=== PATIENT | female | born 1930 | race Caucasian/White ===

== ENCOUNTER 2016-09-18 06:05 | Inpatient (IN) | payer MEDICARE, BC ==
--- NOTE | 2016-09-03 16:55 | HP ---
HISTORY AND PHYSICAL: DATE OF ADMISSION: 09/18/16. The patient will be coming in to [facility] 09/18/16 for right total knee replacement. CHIEF COMPLAINT: Right knee pain and deformity. HISTORY OF PRESENT ILLNESS: The patient has had years of severe arthritis of the right knee and the pain has now gotten to the point where she would like something to be done about it. We have recommended a right total knee replacement. PAST MEDICAL HISTORY: No allergies, no cancers, no ulcers, or hepatitis. No history of DVT or pulmonary embolism. Her left leg has had peripheral vascular surgery. No recent chest pain, shortness of breath, or leg weakness. The patient had a recent cardiogram. PAST SURGICAL HISTORY: No past surgery for appendix or gallbladder or hysterectomy. PHYSICAL EXAMINATION GENERAL: She is well-nourished, well-developed, not acutely distressed. Her gait is antalgic on the right with varus of the right knee. She is able to walk on her toes and her heels and she can do a partial squat. VITAL SIGNS: Height 64 inches, weight 170, blood pressure 139/65, pulse is 100 , respirations 18, temp 96.3. HEENT: Head: NC/AT. LUNGS: Clear bilaterally. HEART: Regular, S1 and S2 normal. No murmurs or gallops. ABDOMEN: Soft and nontender. There is no organomegaly. EXTREMITIES: Right knee shows extension -5 to 8 degrees, flexion 90 degrees with discomfort. The right knee has medial tenderness, nontender anteriorly, laterally, posteriorly. She can do a leg raise. The dorsalis pedis pulse is plus and both pulses are very good with Doppler signal. No swelling of her right leg, ankle, and foot. Her left leg is larger than her right. NEUROLOGIC: The cranial nerves are grossly intact. DIAGNOSTIC STUDIES: The x-rays were reviewed, she has severe arthritis of the right knee. IMPRESSION: Right knee severe arthritis. PLAN: Right total knee replacement. Today, we reviewed again the risks and complications of surgery and her questions were answered. We will proceed with a right total knee replacement, 09/18/16. [id number]/[facility] #: [id number] MTDD
[~2016-09-18 06:05] MED LIST: Buffered Lidocaine 1% SYRIN* 3 ML/SYR SYRINGE INTRADERM ONE; Famotidine IV* 10 MG/ML 2 ML (20 mg) IV ONE; Metoclopramide TAB* 10 MG PO ONE
[2016-09-18] MEDS ORDERED: Famotidine IV* 10 MG/ML 2 ML (20 mg) ONE (06:12)
[2016-09-18] MEDS ORDERED: ceFAZolin 2 GM PREMIX(*) 2 GM/50 ML BAG IVPB ONE (06:12)
[2016-09-18] MEDS ORDERED: Metoclopramide TAB* 10 MG ONE (06:12)
[2016-09-18] MEDS ORDERED: Morphine PF AMP (0.5MG/ML)* 5 MG/10 ML AMP ONE (07:07)
[2016-09-18] MEDS ORDERED: Dexamethasone IV* 4 MG/ML 1 ML (4 MG) ONE (07:07)
[2016-09-18] MEDS ORDERED: Bupivacaine 0.5% SDV PF* 30 ML VIAL ONE (07:07)
[2016-09-18] MEDS ORDERED: Propofol* 10 MG/ML 20 ML BTL IV PUSH ONE ×2 (07:07→08:17)
[2016-09-18] MEDS ORDERED: Lidocaine 2% PF * 5 ML VIAL ONE (07:07)
[2016-09-18] MEDS ORDERED: Midazolam* 1 MG/ML 5 ML VIAL (5 MG) ONE (07:07)
[2016-09-18] MEDS ORDERED: Ketorolac INJ* 30 MG/ML 1 ML VIAL ONE (07:07)
[2016-09-18] MEDS ORDERED: KETAMINE HCL* 50 MG/ML 10 ML VIAL ONE (07:07)
[2016-09-18] MEDS ORDERED: Ondansetron INJ* 2 MG/ML VIAL ONE (07:07)
[2016-09-18] MEDS ORDERED: fentaNYL* 50 MCG/ML 2 ML VIAL (100 MCG VIAL) ONE (07:07)
[2016-09-18] MEDS ORDERED: Bupivacaine 0.5% W/EPI SDV* 30 ML VIAL ONE (07:11)
[2016-09-18] MEDS ORDERED: Phenylephrine IV* 40 MCG/ML 10 ML SYRINGE ONE (07:50)
[2016-09-18] MEDS ORDERED: Phenylephrine INJ* 10 MG/ML 1 ML VIAL (10 MG) ONE (08:03)
[2016-09-18] MEDS ORDERED: Ondansetron INJ* 2 MG/ML VIAL IV PRN ×2 (08:43→08:54)
[2016-09-18] MEDS ORDERED: fentaNYL* 50 MCG/ML 2 ML VIAL (100 MCG VIAL) IV PRN (08:43)
[2016-09-18] MEDS ORDERED: Phenylephrine INJ* 50 MG in NS 0.9% 250 ML* 245 ML IV PRN (08:43)
[2016-09-18] MEDS ORDERED: Lactated Ringers 500 ml BAG* 500 ML IV PRN (08:49)
[2016-09-18] MEDS ORDERED: EPHEDrine (Pressors)* 50 MG/ML VIAL IV PUSH PRN (08:49)
[2016-09-18] MEDS ORDERED: oxyCODONE/Acetamin 5/325 MG* TAB PO PRN ×2 (08:49)
[2016-09-18] MEDS ORDERED: Naloxone* 0.4 MG/ML 1 ML VIAL IV PRN (08:54)
[2016-09-18] MEDS ORDERED: diPHENhydraMINE IV* 50 MG/ML 1 ml VIAL (BENADRYL) IV PRN (08:54)
[2016-09-18] MEDS ORDERED: Metoclopramide IV* 5 MG/ML 2 ML VIAL IV PRN (08:54)
[2016-09-18] MEDS ORDERED: Ropivacaine* 300 MG in NS 0.9% 250 ML* 240 ML EPIDURAL SCH (09:00)
[2016-09-18] MEDS ORDERED: Acetaminophen TAB* 325 MG PO PRN (10:30)
--- NOTE | 2016-09-18 11:25 | RAD ---
Indication: Right knee replacement. 2 views of the right knee are reviewed. Drainage catheter are noted in the joint space. Bipolar knee arthroplasty appears to be in place. IMPRESSION: Bipolar knee arthroplasty in satisfactory position.
[2016-09-18 14:03] LABS: Hematocrit 27 % (35-47); Hemoglobin 8.3 g/dl (12.0-16.0)
[2016-09-18] MEDS: ceFAZolin 1 GM in Dextrose (*) 1 GM/50 ML BAG IVPB SCH (17:03)
--- NOTE | 2016-09-18 17:30 | CONS ---
CONSULTATION REPORT: DATE OF CONSULT: 09/18/16 REQUESTING PHYSICIAN FOR CONSULT: Dr. Garcia. PRIMARY CARE PROVIDER: Dr. Zepeda. ATTENDING PHYSICIAN WHILE IN THE HOSPITAL: Dr. Jimmy Sutherland (reported being dictated by Xander Saez NP). REASON FOR MEDICAL CONSULTATION: Evaluation of medical management and comorbid medical conditions. HISTORY OF PRESENTING ILLNESS: I refer you to Dr. Garcia's H and P for further details. In short, Ms. Nicole is an 86-year-old female patient who has had right knee pain for some time affecting her activities of daily living, failing conservative management. She sought care with Dr. Garcia and the patient elected to proceed with a right total knee replacement. It was recommended by the Orthopedic Services and she wanted to proceed. She does carry a history of hypertension, peripheral vascular disease, ulcerative colitis, hyperlipidemia, arthritis, anemia, and osteoporosis and because of this, we were asked to evaluate in consult. She underwent a procedure today. She was evaluated in the PACU. The patient states that she is feeling well and she does not really have any feeling to her lower extremities as of yet. She did receive epidural and spinal anesthesia. She denies having any chest pain or shortness of breath. She states that she did not feel lightheaded and she also states that she does not feel nauseous and said she is not having any pain really. She states that she feels quite well. She denies feeling drowsy and states that again this is not really offering any complaints. Because of her previous medical problems, we were asked to evaluate in consult. PAST MEDICAL HISTORY: Significant for: 1. Arthritis. 2. Peripheral vascular disease. 3. Hypertension. 4. Hyperlipidemia. 5. Ulcerative colitis. 6. Anemia. 7. Osteoporosis. PAST SURGICAL HISTORY: 1. She has had a femoral popliteal bypass in the left lower extremity. 2. She has had knee arthroscopies. 3. She has had abdominal surgery for presumed kidney stones in the past but according to the patient, it was an issue with the blood vessel wrapped around one of her ureters. She explained it to me, this was done back in the 80s. 4. Now, a right total knee replacement. HOME MEDICATIONS: According to the list that was obtained preoperatively includes: 1. Aspirin 81 mg daily. 2. Lisinopril 10 mg p.o. b.i.d. 3. Atorvastatin 20 mg daily. 4. Mesalamine 1.2 g p.o. daily. ALLERGIES TO MEDICATIONS: Include no known drug allergies. FAMILY HISTORY: Unknown. She does state that her mother had rheumatic heart disease but other than that she does not recall any medical problems in her family members. SOCIAL HISTORY: She does not smoke. She does not drink. She has 3 children. Surrogate decision maker is her . REVIEW OF SYSTEMS: There are no documented fevers. She denied having any significant weight change. No loss or double vision. She denies having any ear discharge. There is no rhinorrhea. There is no sore throat, no thyroid enlargement. She denies having any chest pain. There is no orthopnea, no nocturnal dyspnea. There is abdominal pain. No nausea, no vomiting. No dysuria, no frequency, no seizure. There is no loss of consciousness, pruritus and no skin ulcerations. Review of 14 systems completed, all others negative. PHYSICAL EXAM: Reveals vital signs, blood pressure 101/63, pulse 81, respirations 14, O2 sat 98%, temperature is 97.9. Generally, at this time, Mrs. Nicole is an 86- year-old female patient. She does not appear to be in any acute distress. She is sitting in the PACU bed. She is awake and she is alert. HEENT: Head: Atraumatic, normocephalic. Eyes: EOMs are intact. Sclerae was anicteric and not pale. Neck: Supple. Throat: Oral mucosa appears to be moist. No pharyngeal erythema. Heart: Sounds S1, S2. Regular rate and rhythm. No murmurs, rubs or gallops. Lungs: Clear to auscultation. No wheezes, rales or rhonchi. Abdomen: Soft, flat. Bowel sounds are present. Extremities: Pulses 2+ throughout. Distal CSM checks are intact to the lower extremities. She does not have any plantar or dorsiflexion at this point to the lower extremities but she has 5/5 strength in the upper extremities. Neurologically, she is awake, alert, oriented x3. Speech is clear. Tongue is midline. No gross focal deficits. Skin is intact with exception of the right knee. She has an incision which is covered with an Александр dressing. There is a Hemovac drain intact as well which is draining serosanguineous fluid. DIAGNOSTIC STUDIES/LAB DATA: Preop labs revealed WBC of 7.6, RBC of 4.19, hemoglobin of 10.6, hematocrit of 34, platelet count of 372. The INR was 0.90. Sodium 138, potassium 4.4, chloride 104, bicarb 28, BUN 16, creatinine of 0.92, glucose of 102. She did have a preop EKG which showed a normal sinus rhythm at the rate of 69, no ST elevations or T-wave inversions. Old medical records were reviewed. ASSESSMENT AND PLAN: Mrs. Nicole is an 86-year-old female patient coming into the Orthopedic Service today for an elective right total knee replacement. The hospitalist service was asked to evaluate in consult due to her medical complexity. Recommendation at this point are: 1. Status post right total knee replacement. I will defer the management to Dr. Garcia and his team. 2. Hypertension. She does have an epidural and her blood pressure systolically rate around 100 to 110 range. I am going to go ahead and hold the lisinopril for the time being. We will restart most likely when an epidural is out. 3. Hyperlipidemia. Continue statin therapy. 4. Peripheral vascular disease. I would continue her aspirin which is already been ordered by Dr. Garcia. In addition to this, I will also continue her statin and follow with her primary. 5. Ulcerative colitis. Continue her mesalamine as prescribed. 6. Anemia. We will repeat her H and H later today and transfuse as needed but her H and H was stable preop. We will follow. 7. Osteoporosis. To follow with primary. 8. Osteoarthritis. Again follow with her primary and I will defer to the Orthopedics. 9. DVT prophylaxis. Per the primary team. 10. Fluids, electrolytes, and nutrition. Recommend a regular diet. 11. Code status. Full code. TIME SPENT: Time spent on this consult was 60 minutes with greater than half that time spent [id number] with the patient obtaining my history and physical. The other half the time was spent going over the plan of care with the patient and implementing the plan of care. I did discuss the plan of care with my attending, Dr. Sutherland; he is in agreement. XANDER SAEZ NP CC: Dr. Zepeda; Dr. Garcia* [id number]/[facility] #: [id number] [facility]ALTH SYSTEMJessica
[2016-09-18] MEDS ORDERED: Lactated Ringers 500 ml BAG* 500 ML IV ONE (21:00)
[2016-09-18] MEDS ORDERED: LISINOPRIL 10 MG PO SCH (21:00)
[2016-09-18] MEDS: Docusate CAP* 100 MG PO SCH (21:21)
[2016-09-18] MEDS ORDERED: LR IV ONE (23:45)
[2016-09-19] MEDS ORDERED: diPHENhydraMINE IV* 50 MG/ML 1 ml VIAL (BENADRYL) IV PRN
[2016-09-19] MEDS ORDERED: Morphine INJ* 2 MG/ML 1 ML SYRINGE IV PRN ×2
[2016-09-19] MEDS ORDERED: oxyCODONE TAB* 5 MG TAB PO PRN
[2016-09-19] MEDS: ceFAZolin 1 GM in Dextrose (*) 1 GM/50 ML BAG IVPB SCH ×2 (00:09→09:18)
--- NOTE | 2016-09-19 00:18 | OP ---
OPERATIVE REPORT: DATE OF OPERATION: 09/18/16 - inpatient, SSU 347-02 DATE OF : 34 SURGICAL CARE: Right knee. SURGEON: Virgilio Garcia MD ASSISTANTS: MARKUS Crisostomo and radames Miles. ANESTHESIOLOGIST: Dr. Ghassan Wagner. ANESTHESIA: Spinal with Duramorph and epidural IV sedation. PRE-OP DIAGNOSIS: Severe arthritis of the right knee with varus malalignment and flexion contracture. POST-OP DIAGNOSIS: Severe arthritis of the right knee with varus malalignment and flexion contracture. OPERATIVE PROCEDURE: Right total knee replacement. COMPONENTS UTILIZED: Deniz Persona knee posterior stabilized. The femur is a size 6. The tibia is a size D. The articular surface is a 10 and the patella is a 35. COMPLICATIONS: There were no complications. DRAINS: Two blood collections drain, right knee, at the end of the case. BLOOD LOSS: 200 mL. REPLACEMENT: Crystalloid fluids. OPERATIVE INDICATIONS: Severe arthritis that has been no longer responsive to nonoperative care and the knee deformities. DESCRIPTION OF PROCEDURE: The patient was brought to the operating room and placed on the operating room table in a supine position. She was in the seated position for administration of the spinal epidural anesthetic and then returned to the supine position. A Spangler catheter was inserted. The right dorsalis pedis pulse was noted to be present and the right posterior tibial pulse was noted to be present by Doppler. The right proximal thigh was wrapped with a tourniquet and the right leg was given a preliminary chlorhexidine prep and then a formal prep from the tourniquet to the tips of the toes. After prepping , draping, and carefully sealing off, we did our universal protocol time-out confirming Param Nicole and a plan for right total knee replacement. We all agreed and we proceeded. The leg, ankle, and foot portion of her leg was dressed with an impermeable drape. Her knee flexion at the start of the case was just 90 degrees. The surgical care was done without tourniquet until the clean up and cementing phase of the case. The skin incision went from the medial aspect of the tibial tubercle to 2 fingerbreadths proximal to the superior pole of the patella. Skin and subcu divided down to the deep fascia. The prepatellar bursa was traversed and the knee was entered medial parapatellar with a finding of abundant clear goldish synovial fluid. She had complete eburnation of bone on the medial femoral condyle and the medial tibial plateau with scooping out of the medial tibial plateau large osteophytes, patellofemoral, medial, intercondylar and lateral. The tibia had large osteophytes anteriorly and posteriorly and there is osteophyte on the anterolateral femoral condyle and lateral tibial plateau. The remains of the anterior horn of the medial meniscus were excised. The lateral meniscus was carefully excised getting careful hemostasis in the region of the lateral geniculate. The ACL and PCL were carefully removed and after uplifting off their femoral origins, the tibia was made so that could be subluxated for from under the femur and then the PCL was excised. Great care was taken while working posteriorly in this area with careful hemostasis. The distal anterior femur was exposed subperiosteally for referencing and measuring. Our first cut was tibial plateau. The tibial cut was made so that we would end up with a tibial surface that would be perpendicular to the long axis of the tibia and have a slight posterior slope removing no bone from the lowest part on the medial tibia and 10 to 14 mm of bone on the lateral plateau. The femoral intramedullary drill was then utilized and the femoral canal was suctioned to discourage embolization. Femoral cutting guide distal was inserted with 6 degrees of valgus on 2 to take account for her flexion contracture. The distal femoral cut was completed. The extension gap was checked and it was satisfactory for a 10. The femur was then finished anteriorly, posteriorly and chamfering for a size 6 with external rotation considered and we then finished removal of the lateral meniscus, the PCL, posterior osteophytes on the medial femoral condyle, posterior horn medial meniscus and careful preservation of the MCL and at this stage, we had nice ligamentous balance and flexion with a 10 mm block in extension, flexion of 90 degrees and in full extension. The femur was then completed with the intercondylar cut out and trial applied with nice tight fit. The tibia was completed for a size D. The femoral canal was then cleaned x6 with saline, suctioned empty and bone plug inserted. The femur was articulated and extended with a D tibia 10 articular surface and 6 femur with full knee extension, flexion well past 110 degrees and stable ligaments. The patella was completed for a 35. Drill holes were made and undercut. A lateral release was not necessary. The final components were then opened. The leg was exsanguinated with a tourniquet. The tourniquet on the thigh elevated to 275 and there was little leakage, so we went to 300. We then proceeded with clean up of the knee in full extension with 2 L of pulsed saline irrigation. We then flexed the knee and cleaned all surfaces with pulsed saline in flexion and then all surfaces were dried. The cement was mixed and the components were cemented into position , patella followed by tibia, followed by femur. Each component was impacted. Excess cement was removed and the knee was articulated and extended during the final hardening. The tourniquet was then deflated. Hemostasis checked and achieved as we closed utilizing electrocautery. We checked posteriorly for retained cement fragments and bleeding points and coagulation completed. Two drains were brought out superolateral, suprapatellar pouch. The quad mechanism closed with interrupted #1 Polysorb's reattaching the rectus femoris to the vastus medialis tendon with figure- of-eight #1 Polysorb sutures and this was on the medial retinaculum as well and then distally, we used 0 Polysorb sutures. Deep bursa closed with 0 and then deep subcu closed with 0 Polysorb and then 3-0 Polysorb on the superficial subcu and then miesha on the skin. We irrigated several times during closure with saline and the knee was extended completed and flexed well past 115 degrees several times during the closure. The skin was closed with miesha. We infiltrated the pericapsular soft tissues with Marcaine 0.5% with epinephrine after the tourniquet came down going posteromedially, medially, and laterally. The dressing was Betadine-soaked release, sterile Webril, cryotherapy cuff, ABD pads, and then a 6-inch Александр bandage loosely applied. At the end of the case, the dorsalis pedis pulse was 2+ palpable and the posterior tibial pulse was present by Doppler as it had been preoperatively. The Doppler was done in the recovery room and the patient was returned there in stable and satisfactory condition, having tolerated the procedure very well. CC: Dr. Philippe Zepeda* [id number]/[facility] #: [id number] SON
[2016-09-19] MEDS ORDERED: LR IV ONE (04:27)
[2016-09-19] MEDS: oxyCODONE/Acetamin 5/325 MG* TAB PO PRN ×3 (05:28→21:30)
[2016-09-19 05:43] LABS: BUN/Creatinine Ratio 21.1 (8-20); Calcium 8.2 mg/dL (8.6-10.3); EGFR African American 93.2 (>60); EGFR Non-African American 72.5 (>60); Potassium 4.7 mmol/L (3.5-5.0)
[2016-09-19] MEDS ORDERED: Ondansetron TAB* 4 MG PO PRN (06:00)
[2016-09-19 07:42] LABS: Hematocrit 26 % (35-47)
[2016-09-19] MEDS: PTO: Mesalamine (NF) 1.2 GM TAB PO SCH (09:19)
[2016-09-19] MEDS: Atorvastatin* 20 MG TAB PO SCH (09:19)
[2016-09-19] MEDS: Docusate CAP* 100 MG PO SCH ×2 (09:19→21:30)
[2016-09-19] MEDS: Aspirin TAB* 325 MG PO SCH (09:19)
--- NOTE | 2016-09-19 12:19 | PN ---
Subjective Date of Service: 09/19/16 Interval History: Patient seen and examined at bedside. She denies pain to her right knee and states that she was able to work with PT and sit in the chair this morning for 2 hours. She denies fever/chills, CP, SOB, abd pain. She does report one episode of emesis following breakfast this morning but is now feeling better. No acute nursing concerns. Family History: Unchanged from Admission Social History: Unchanged from Admission Past Medical History: Unchanged from Admission Objective Active Medications: Acetaminophen (Tylenol Tab*) 650 mg PO Q4H PRN PRN Reason: PAIN OR TEMPERATURE Aspirin (Aspirin Tab*) 325 mg PO DAILY [facility] Last Admin: 09/19/16 09:19 Dose: 325 mg Atorvastatin Calcium (Lipitor*) 20 mg PO DAILY [facility] Last Admin: 09/19/16 09:19 Dose: 20 mg Diphenhydramine HCl (Benadryl Iv*) 12.5 mg IV Q6H PRN PRN Reason: PRURITIS Docusate Sodium (Colace Cap*) 100 mg PO BID [facility] Last Admin: 09/19/16 09:19 Dose: 100 mg Lactated Ringer's (Lactated Ringers 1000 Ml Bag*) 1,000 mls @ 100 mls/hr IV PER [facility]ATE [facility] Last Admin: 09/18/16 23:03 Dose: 100 mls/hr Lactulose (Lactulose*) 30 ml PO Q6H PRN PRN Reason: constipation Magnesium Hydroxide (Milk Of Magnesia Liq*) 30 ml PO Q6H PRN PRN Reason: constipation Mesalamine (Lialda (Nf)) 1.2 gm PO DAILY [facility] Last Admin: 09/19/16 09:19 Dose: 1.2 gm Morphine Sulfate (Morphine Inj (Syringe)*) 2 mg IV Q2H PRN PRN Reason: PAIN Morphine Sulfate (Morphine Inj (Syringe)*) 1 mg IV Q2H PRN PRN Reason: PAIN Ondansetron HCl (Zofran Tab*) 4 mg PO Q6H PRN PRN Reason: NAUSEA Oxycodone HCl (Roxycodone Tab*) 10 mg PO Q4H PRN PRN Reason: SEVERE PAIN Oxycodone/Acetaminophen (Percocet 5/325 Tab*) 1 tab PO Q3H PRN PRN Reason: PAIN - MODERATE Oxycodone/Acetaminophen (Percocet 5/325 Tab*) 2 tab PO Q3H PRN PRN Reason: PAIN - MODERATE Last Admin: 09/19/16 05:28 Dose: 2 tab Vital Signs 09/18/16 09/18/16 09/18/16 12:30 12:45 13:00 Temperature 97.7 F Pulse Rate 82 70 82 Respiratory 12 12 12 Rate Blood Pressure 104/45 101/44 105/44 (mmHg) O2 Sat by Pulse 98 97 97 Oximetry 09/18/16 09/18/16 09/18/16 13:15 13:36 14:26 Temperature 96.5 F 96.7 F Pulse Rate 73 72 55 Respiratory 12 20 16 Rate Blood Pressure 102/46 97/46 107/45 (mmHg) O2 Sat by Pulse 98 96 99 Oximetry 09/18/16 09/18/16 09/18/16 14:46 15:29 15:30 Temperature 96.5 F 97.3 F Pulse Rate 72 70 Respiratory 18 16 Rate Blood Pressure 97/46 85/48 104/41 (mmHg) O2 Sat by Pulse 96 Oximetry 09/18/16 09/18/16 09/18/16 16:00 16:28 17:29 Temperature 96.9 F Pulse Rate 56 Respiratory Rate Blood Pressure 102/46 (mmHg) O2 Sat by Pulse 99 99 99 Oximetry 09/18/16 09/18/16 09/18/16 18:02 18:03 18:20 Temperature 96.9 F 96.7 F Pulse Rate 59 75 Respiratory 16 Rate Blood Pressure 100/63 93/49 (mmHg) O2 Sat by Pulse 100 100 Oximetry 09/18/16 09/18/16 09/18/16 19:33 19:35 19:45 Temperature 96.9 F Pulse Rate 54 61 Respiratory 15 16 15 Rate Blood Pressure 87/42 82/41 (mmHg) O2 Sat by Pulse 100 100 Oximetry 09/18/16 09/19/16 09/19/16 23:40 00:15 01:10 Temperature 96.8 F Pulse Rate 52 58 Respiratory 16 Rate Blood Pressure 84/48 93/40 (mmHg) O2 Sat by Pulse 98 97 Oximetry 09/19/16 09/19/16 09/19/16 03:41 05:28 07:15 Temperature 97.6 F 97.3 F Pulse Rate 50 52 Respiratory 16 15 16 Rate Blood Pressure 91/43 94/40 (mmHg) O2 Sat by Pulse 96 95 Oximetry 09/19/16 09/19/16 09/19/16 07:24 08:00 09:49 Temperature 97.3 F Pulse Rate 62 Respiratory 16 16 16 Rate Blood Pressure 111/49 (mmHg) O2 Sat by Pulse 95 96 Oximetry 09/19/16 09/19/16 10:24 11:30 Temperature 97.5 F Pulse Rate 65 Respiratory 16 Rate Blood Pressure 101/45 (mmHg) O2 Sat by Pulse 98 95 Oximetry Appearance: Well appearing, older female, lying in bed, in NAD Eyes: PERRLA Ears/Nose/Mouth/Throat: Mucous Membranes Moist Neck: NL Appearance and Movements; NL JVP Respiratory: Symmetrical Chest Expansion and Respiratory Effort, Clear to Auscultation Cardiovascular: NL Sounds; No Murmurs; No JVD, RRR Abdominal: NL Sounds; No Tenderness; No Distention Extremities: No Edema, - - RLE dressing c/d/i, distal pulses 2+, cap refill <3 seconds, positive sensation/movement Skin: No Rash or Ulcers Neurological: Alert and Oriented x 3 Lines/Tubes/Other Access: Clean, Dry and Intact Peripheral IV Nutrition: Taking PO's Result Diagrams: 09/19/16 05:08 09/19/16 05:06 Assess/Plan/Problems-Billing Assessment: Ms. Nicole is an 86 yo female with a PMH of HTN, HLD, OA, PVD, osteoporosis, anemia, and ulcerative colitis who was admitted 09/18/16 for an elective right total knee replacement. - Patient Problems (1) Status post total right knee replacement Code(s): Z96.651 - PRESENCE OF RIGHT ARTIFICIAL KNEE JOINT Comment: POD #1, management per ortho Patient ordered 2 units PRBC, recheck HH in AM Continue PT/OT, pain management Supportive care (2) Anemia Code(s): D64.9 - ANEMIA, UNSPECIFIED Comment: Drop in HH likely secondary to acute blood loss following surgery Hemoglobin 10.6 earlier this month, now 8.0 Patient receiving 2 units PRBC Continue to follow closely; pt does have history of ulcerative colitis. (3) Ulcerative colitis Code(s): K51.90 - ULCERATIVE COLITIS, UNSPECIFIED, WITHOUT COMPLICATIONS Comment: Continue mesalamine. Continue to trend HH. (4) HTN (hypertension) Code(s): I10 - ESSENTIAL (PRIMARY) HYPERTENSION Comment: Mildly hypotensive to normotensive Continue to hold lisinopril (5) HLD (hyperlipidemia) Code(s): E78.5 - HYPERLIPIDEMIA, UNSPECIFIED Comment: Continue atorvastatin. (6) Peripheral vascular disease Code(s): I73.9 - PERIPHERAL VASCULAR DISEASE, UNSPECIFIED Comment: Continue home ASA and statin. (7) DVT prophylaxis Code(s): RME4020 - Comment: Per ortho SCDs Status and Disposition: Inpatient admission. Disposition per ortho. Hospital medicine team consulting for co-medical management.
[2016-09-20] MEDS ORDERED: Albuterol 2.5 MG/3 ML NEB.SOL* (0.083%) INH PRN (06:53)
--- NOTE | 2016-09-20 07:37 | PN ---
Subjective Date of Service: 09/20/16 Interval History: Patient seen and examined at bedside. Nursing called lead physician earlier this morning with concern for weakness and nausea reported by patient while ambulating. Ms. Nicole is lying in bed and states that she just feels "weak and tired all over" this morning. She continues to deny pain, stating "I'm not having any pain, in my knee or in my chest or anywhere. I just feel weak." She denies dizziness but states she feels "woozy." She does not feel like she had a near syncopal episode. She denies any history of feeling this way or breathing disorders, such as asthma or COPD. She does not feel short of breath. She denies fever/chills, CP, abd pain. She no longer feels nauseous. Family History: Unchanged from Admission Social History: Unchanged from Admission Past Medical History: Unchanged from Admission Objective Active Medications: Acetaminophen (Tylenol Tab*) 650 mg PO Q4H PRN PRN Reason: PAIN OR TEMPERATURE Albuterol (Ventolin 2.5 Mg/3 Ml Neb.Kerrie*) 2.5 mg INH Q2H PRN PRN Reason: SOB/WHEEZING Aspirin (Aspirin Tab*) 325 mg PO DAILY [facility] Last Admin: 09/19/16 09:19 Dose: 325 mg Atorvastatin Calcium (Lipitor*) 20 mg PO DAILY [facility] Last Admin: 09/19/16 09:19 Dose: 20 mg Diphenhydramine HCl (Benadryl Iv*) 12.5 mg IV Q6H PRN PRN Reason: PRURITIS Docusate Sodium (Colace Cap*) 100 mg PO BID [facility] Last Admin: 09/19/16 21:30 Dose: 100 mg Lactated Ringer's (Lactated Ringers 1000 Ml Bag*) 1,000 mls @ 100 mls/hr IV PER RATE [facility] Last Admin: 09/19/16 13:09 Dose: 100 mls/hr Lactulose (Lactulose*) 30 ml PO Q6H PRN PRN Reason: constipation Magnesium Hydroxide (Milk Of Magnesia Liq*) 30 ml PO Q6H PRN PRN Reason: constipation Mesalamine (Lialda (Nf)) 1.2 gm PO DAILY [facility] Last Admin: 09/19/16 09:19 Dose: 1.2 gm Morphine Sulfate (Morphine Inj (Syringe)*) 2 mg IV Q2H PRN PRN Reason: PAIN Morphine Sulfate (Morphine Inj (Syringe)*) 1 mg IV Q2H PRN PRN Reason: PAIN Ondansetron HCl (Zofran Tab*) 4 mg PO Q6H PRN PRN Reason: NAUSEA Last Admin: 09/20/16 07:21 Dose: 4 mg Oxycodone HCl (Roxycodone Tab*) 10 mg PO Q4H PRN PRN Reason: SEVERE PAIN Oxycodone/Acetaminophen (Percocet 5/325 Tab*) 1 tab PO Q3H PRN PRN Reason: PAIN - MODERATE Last Admin: 09/19/16 21:30 Dose: 1 tab Oxycodone/Acetaminophen (Percocet 5/325 Tab*) 2 tab PO Q3H PRN PRN Reason: PAIN - MODERATE Last Admin: 09/19/16 05:28 Dose: 2 tab Vital Signs 09/19/16 09/19/16 09/19/16 08:00 09:49 10:24 Temperature 97.3 F 97.5 F Pulse Rate 62 65 Respiratory 16 16 16 Rate Blood Pressure 111/49 101/45 (mmHg) O2 Sat by Pulse 95 96 98 Oximetry 09/19/16 09/19/16 09/19/16 11:30 12:41 13:05 Temperature 97.6 F Pulse Rate 56 Respiratory 16 16 Rate Blood Pressure 95/50 (mmHg) O2 Sat by Pulse 95 97 Oximetry 09/19/16 09/19/16 09/19/16 15:05 15:47 15:51 Temperature 97.6 F Pulse Rate 33 62 Respiratory 16 15 Rate Blood Pressure 118/93 (mmHg) O2 Sat by Pulse 75 93 Oximetry 09/19/16 09/19/16 09/19/16 16:00 19:36 19:49 Temperature 97.8 F Pulse Rate 67 Respiratory 16 16 Rate Blood Pressure 119/52 (mmHg) O2 Sat by Pulse 93 99 Oximetry 09/19/16 09/19/16 09/19/16 21:30 23:30 23:57 Temperature 97.6 F Pulse Rate 83 Respiratory 16 14 16 Rate Blood Pressure 118/49 (mmHg) O2 Sat by Pulse 94 Oximetry 09/20/16 09/20/16 09/20/16 03:12 06:38 06:39 Temperature 98.2 F 98.0 F Pulse Rate 94 101 96 Respiratory 20 24 Rate Blood Pressure 153/68 151/69 (mmHg) O2 Sat by Pulse 98 100 Oximetry Oxygen Devices in Use Now: None Appearance: Older female patient, lying in bed, appears tired, in NAD Eyes: PERRLA Ears/Nose/Mouth/Throat: Mucous Membranes Moist Neck: NL Appearance and Movements; NL JVP Respiratory: Symmetrical Chest Expansion and Respiratory Effort, Clear to Auscultation Cardiovascular: NL Sounds; No Murmurs; No JVD, RRR - tachycardic Abdominal: NL Sounds; No Tenderness; No Distention Extremities: No Edema, No Clubbing, Cyanosis, - - distal pulses 2+, sensation/ movement intact, cap refill <3 seconds Skin: No Rash or Ulcers Neurological: Alert and Oriented x 3 Lines/Tubes/Other Access: Clean, Dry and Intact Peripheral IV Nutrition: Taking PO's Result Diagrams: 09/20/16 07:32 09/20/16 07:32 Assess/Plan/Problems-Billing Assessment: Ms. Nicole is an 86 yo female with a PMH of HTN, HLD, OA, PVD, osteoporosis, anemia, and ulcerative colitis who was admitted 09/18/16 for an elective right total knee replacement. - Patient Problems (1) Weakness Code(s): R53.1 - WEAKNESS Comment: Unclear etiology Will check EKG, CBC, UA, CXR Patient last received oxycodone last evening, does not appear to be medication mediated. Lower suspicion for PE at this point but will continue to monitor and will check CTA if sx persist and other workup is benign. (2) Status post total right knee replacement Code(s): Z96.651 - PRESENCE OF RIGHT ARTIFICIAL KNEE JOINT Comment: POD #2, management per ortho HH ordered for this morning, improved to 9.5/30 Continue PT/OT, pain management Supportive care (3) Anemia Code(s): D64.9 - ANEMIA, UNSPECIFIED Comment: Drop in HH likely secondary to acute blood loss following surgery Patient s/p 2 units of PRBC, Hgb 9.5 Continue to follow closely; pt does have history of ulcerative colitis. (4) Ulcerative colitis Code(s): K51.90 - ULCERATIVE COLITIS, UNSPECIFIED, WITHOUT COMPLICATIONS Comment: Continue mesalamine. Continue to trend HH. (5) HTN (hypertension) Code(s): I10 - ESSENTIAL (PRIMARY) HYPERTENSION Comment: SBP 150s this AM Restart lisinopril (6) HLD (hyperlipidemia) Code(s): E78.5 - HYPERLIPIDEMIA, UNSPECIFIED Comment: Continue atorvastatin. (7) Peripheral vascular disease Code(s): I73.9 - PERIPHERAL VASCULAR DISEASE, UNSPECIFIED Comment: Continue home ASA and statin. (8) DVT prophylaxis Code(s): TDM2932 - Comment: Per ortho SCDs Status and Disposition: Inpatient admission. Disposition per ortho. Hospital medicine team consulting for co-medical management.
[2016-09-20] MEDS ORDERED: LACTULOSE* 30 ML UDC PO PRN (08:00)
[2016-09-20 08:16] LABS: Hematocrit 30 % (35-47); Hemoglobin 9.5 g/dl (12.0-16.0)
--- NOTE | 2016-09-20 08:17 | RAD ---
Indication: Weakness, general malaise. Single frontal view of the chest performed at 0744 hours was reviewed. Comparison is made with previous exam dated August 26, 2007. Cardiomegaly is noted. Interstitial edema consistent with vascular congestion is noted. No alveolar consolidation is noted. IMPRESSION: CARDIOMEGALY. INTERSTITIAL EDEMA CONSISTENT WITH VASCULAR CONGESTION.
[2016-09-20] MEDS: PTO: Mesalamine (NF) 1.2 GM TAB PO SCH (08:28)
[2016-09-20] MEDS: Docusate CAP* 100 MG PO SCH ×2 (08:29→20:50)
[2016-09-20] MEDS: Aspirin TAB* 325 MG PO SCH (08:30)
[2016-09-20] MEDS: Atorvastatin* 20 MG TAB PO SCH (08:30)
[2016-09-20] MEDS: oxyCODONE/Acetamin 5/325 MG* TAB PO PRN ×3 (08:33→17:29)
[2016-09-20 08:38] LABS: BUN/Creatinine Ratio 18.8 (8-20); Calcium 8.6 mg/dL (8.6-10.3); EGFR African American 81.9 (>60); EGFR Non-African American 63.7 (>60); Magnesium 1.7 mg/dL (1.9-2.7); Potassium 4.3 mmol/L (3.5-5.0)
[2016-09-20 08:51] LABS: Mean Corpuscular HGB Conc 32 g/dl (31-36); Mean Corpuscular Hemoglobin 26 pg (27-31); Mean Corpuscular Volume 80 fL (80-97); Mean Platelet Volume 8 um3 (7.4-10.4); Red Blood Count 3.73 10^6/ul (4.0-5.4); Red Cell Distribution Width 16 % (10.5-15); White Blood Count 15.7 10^3/ul (3.5-10.8)
[2016-09-20] MEDS ORDERED: Lisinopril TAB* 10 MG PO SCH (09:00)
--- NOTE | 2016-09-20 09:10 | PN ---
Progress Note - Progress Note SOAP: Subjective: patient resting comfortably with no complaints Objective: Vital Signs Temp Pulse Resp BP Pulse Ox 98.3 F 78 20 146/63 100 09/20/16 07:38 09/20/16 07:38 09/20/16 08:33 09/20/16 07:38 09/20/16 07:38 Laboratory Last Values WBC 15.7 10^3/ul (3.5-10.8) H 09/20/16 07:32 RBC 3.73 10^6/ul (4.0-5.4) L 09/20/16 07:32 Hgb 9.5 g/dl (12.0-16.0) L 09/20/16 07:32 Hct 30 % (35-47) L 09/20/16 07:32 MCV 80 fL (80-97) 09/20/16 07:32 MCH 26 pg (27-31) L 09/20/16 07:32 MCHC 32 g/dl (31-36) 09/20/16 07:32 RDW 16 % (10.5-15) H 09/20/16 07:32 Plt Count 284 10^3/ul (150-450) 09/20/16 07:32 MPV 8 um3 (7.4-10.4) 09/20/16 07:32 INR (Anticoag Therapy) 0.97 (0.89-1.11) 09/19/16 05:08 Sodium 140 mmol/L (133-145) 09/20/16 07:32 Potassium 4.3 mmol/L (3.5-5.0) 09/20/16 07:32 Chloride 108 mmol/L (101-111) 09/20/16 07:32 Carbon Dioxide 25 mmol/L (22-32) 09/20/16 07:32 Anion Gap 7 mmol/L (2-11) 09/20/16 07:32 BUN 16 mg/dL (6-24) 09/20/16 07:32 Creatinine 0.85 mg/dL (0.51-0.95) 09/20/16 07:32 Est GFR ( Amer) 81.9 (>60) 09/20/16 07:32 Est GFR (Non-Af Amer) 63.7 (>60) 09/20/16 07:32 BUN/Creatinine Ratio 18.8 (8-20) 09/20/16 07:32 Glucose 100 mg/dL (70-100) 09/20/16 07:32 POC Glucose (mg/dL) 88 mg/dL (74-106) 09/20/16 06:27 Calcium 8.6 mg/dL (8.6-10.3) 09/20/16 07:32 Magnesium 1.7 mg/dL (1.9-2.7) L 09/20/16 07:32 Blood Type A Negative 09/18/16 06:30 Antibody Screen Negative 09/18/16 06:30 Crossmatch See Detail 09/18/16 06:30 incision: c/d; dressing changed PE: intact B/L LE strengths, 2+ DP pulses, intact sensation Assessment: POD#2, S/P right TKA Plan: 1) Continue PT/OT-WBAT 2) Continue ASA/SCD's for DVT prophylaxis 3) likely home tomorrow if PT goals met.
[2016-09-20] MEDS ORDERED: Magnesium Sulfate 2 GM IV* 2 GM/50 ML BAG IVPB ONE (09:16)
[2016-09-20] MEDS ORDERED: Furosemide IV* 10 MG/ML 2 ML VIAL (20 MG) IV SLOW PU ONE (09:19)
[2016-09-20] MEDS ORDERED: Magnesium Hydroxide LIQ* 30 ML UDC PO PRN (10:30)
[2016-09-20 12:50] LABS: Urine Bilirubin Negative (Negative); Urine Glucose Negative (Negative); Urine Nitrite Negative (Negative)
[2016-09-20] MEDS ORDERED: Iohexol 350* (CONTRAST) 500 ML MDV IV SCH (13:36)
--- NOTE | 2016-09-20 16:35 | RAD ---
INDICATION: Chest pain. Short of breath. Evaluate for pulmonary embolus. COMPARISON: Chest x-ray September 20, 2016 TECHNIQUE: Axial source images were obtained from the thoracic inlet to the hemidiaphragms following administration of [address] angiographic technique was utilized. Coronal and sagittal reconstructed images were acquired. CHEST FINDINGS: Neck/thyroid: The visualized neck to include the thyroid appear normal. Chest wall: There are no acute abnormalities of the bony thorax or chest wall. There is no supraclavicular, infraclavicular, or axillary lymphadenopathy. Lungs : There are mild bibasilar consolidative changes perhaps related atelectasis. There are small bilateral pleural effusions right greater than left. The pulmonary interstitium appears normal. There are no endobronchial lesions. Cardiomediastinal structures: There is no CT evidence of acute pulmonary embolic disease. The heart is normal in size. There is no pericardial effusion. There is no evidence of aortic aneurysm or dissection. There is no mediastinal or hilar adenopathy. There is a large hiatal hernia/intrathoracic stomach. Pleura : There are no pleural-based masses or effusions. Other: None. IMPRESSION: NO CT EVIDENCE OF ACUTE PULMONARY EMBOLIC DISEASE. MILD BIBASILAR CONSOLIDATIVE CHANGES WITH BILATERAL PLEURAL EFFUSIONS. LARGE HIATAL HERNIA/INTRATHORACIC STOMACH
[2016-09-21] MEDS: oxyCODONE/Acetamin 5/325 MG* TAB PO PRN ×4 (02:36→21:30)
[2016-09-21 06:18] LABS: Hematocrit 26 % (35-47); Hemoglobin 8.3 g/dl (12.0-16.0); Mean Corpuscular HGB Conc 31 g/dl (31-36); Mean Corpuscular Hemoglobin 25 pg (27-31); Mean Corpuscular Volume 79 fL (80-97); Mean Platelet Volume 8 um3 (7.4-10.4); Red Blood Count 3.33 10^6/ul (4.0-5.4); Red Cell Distribution Width 16 % (10.5-15); White Blood Count 12.5 10^3/ul (3.5-10.8)
[2016-09-21] MEDS: Lisinopril TAB* 10 MG PO SCH (08:00)
[2016-09-21] MEDS: Atorvastatin* 20 MG TAB PO SCH (08:01)
[2016-09-21] MEDS: Docusate CAP* 100 MG PO SCH ×2 (08:01→21:30)
[2016-09-21] MEDS: Aspirin TAB* 325 MG PO SCH (08:01)
[2016-09-21] MEDS: PTO: Mesalamine (NF) 1.2 GM TAB PO SCH (08:02)
--- NOTE | 2016-09-21 08:51 | PN ---
Subjective Date of Service: 09/21/16 Interval History: Ms. Nicole is resting in bed and denies any acute complaints. She states that she is actually feeling "much better" compared to earlier. She denies CP, SOB, abd pain, n/v. She states that she has had "issues with anemia for a long while. " She has had multiple evaluations but states that no one can find the cause of her anemia. She does endorse a history of ulcerative colitis and reports having a bowel movement last evening with subsequent diarrhea. She denies any abdominal pain. She cannot state if there was visible blood, as she did not see the stool. Family History: Unchanged from Admission Social History: Unchanged from Admission Past Medical History: Unchanged from Admission Objective Active Medications: Acetaminophen (Tylenol Tab*) 650 mg PO Q4H PRN PRN Reason: PAIN OR TEMPERATURE Albuterol (Ventolin 2.5 Mg/3 Ml Neb.Kerrie*) 2.5 mg INH Q2H PRN PRN Reason: SOB/WHEEZING Aspirin (Aspirin Tab*) 325 mg PO DAILY [facility] Last Admin: 09/21/16 08:01 Dose: Not Given Atorvastatin Calcium (Lipitor*) 20 mg PO DAILY [facility] Last Admin: 09/21/16 08:01 Dose: 20 mg Diphenhydramine HCl (Benadryl Iv*) 12.5 mg IV Q6H PRN PRN Reason: PRURITIS Docusate Sodium (Colace Cap*) 100 mg PO BID [facility] Last Admin: 09/21/16 08:01 Dose: 100 mg Iohexol (Omnipaque 350 (Contrast)-) 69 ml IV ONCE [facility] Stop: 09/22/16 23:59 Last Admin: 09/20/16 16:19 Dose: 69 ml Lactulose (Lactulose*) 30 ml PO Q6H PRN PRN Reason: constipation Last Admin: 09/20/16 20:50 Dose: 30 ml Lisinopril (Prinivil Tab*) 10 mg PO DAILY [facility] Last Admin: 09/21/16 08:00 Dose: 10 mg Magnesium Hydroxide (Milk Of Magnesia Liq*) 30 ml PO Q6H PRN PRN Reason: constipation Last Admin: 09/20/16 17:29 Dose: 30 ml Mesalamine (Lialda (Nf)) 1.2 gm PO DAILY [facility] Last Admin: 09/21/16 08:02 Dose: 1.2 gm Morphine Sulfate (Morphine Inj (Syringe)*) 2 mg IV Q2H PRN PRN Reason: PAIN Morphine Sulfate (Morphine Inj (Syringe)*) 1 mg IV Q2H PRN PRN Reason: PAIN Ondansetron HCl (Zofran Tab*) 4 mg PO Q6H PRN PRN Reason: NAUSEA Last Admin: 09/20/16 07:21 Dose: 4 mg Oxycodone HCl (Roxycodone Tab*) 10 mg PO Q4H PRN PRN Reason: SEVERE PAIN Oxycodone/Acetaminophen (Percocet 5/325 Tab*) 1 tab PO Q3H PRN PRN Reason: PAIN - MODERATE Last Admin: 09/20/16 17:29 Dose: 1 tab Oxycodone/Acetaminophen (Percocet 5/325 Tab*) 2 tab PO Q3H PRN PRN Reason: PAIN - MODERATE Last Admin: 09/21/16 08:01 Dose: 2 tab Vital Signs 09/20/16 09/20/16 09/20/16 10:33 11:56 12:57 Temperature 98.4 F Pulse Rate 81 Respiratory 20 15 16 Rate Blood Pressure 105/47 (mmHg) O2 Sat by Pulse 95 Oximetry 09/20/16 09/20/16 09/20/16 14:49 15:39 17:29 Temperature 97.9 F Pulse Rate 82 Respiratory 16 14 16 Rate Blood Pressure 108/42 (mmHg) O2 Sat by Pulse 97 Oximetry 09/20/16 09/20/16 09/20/16 17:38 19:07 19:29 Temperature Pulse Rate 90 Respiratory 16 16 16 Rate Blood Pressure (mmHg) O2 Sat by Pulse Oximetry 09/20/16 09/21/16 09/21/16 19:49 00:04 02:36 Temperature 97.5 F 98.0 F Pulse Rate 82 88 Respiratory 13 16 16 Rate Blood Pressure 99/43 133/58 (mmHg) O2 Sat by Pulse 93 Oximetry 09/21/16 09/21/16 09/21/16 02:41 04:36 08:01 Temperature 98.6 F Pulse Rate 93 Respiratory 16 16 16 Rate Blood Pressure 147/55 (mmHg) O2 Sat by Pulse 95 Oximetry 09/21/16 08:24 Temperature 97.9 F Pulse Rate 91 Respiratory 16 Rate Blood Pressure 133/53 (mmHg) O2 Sat by Pulse 94 Oximetry Oxygen Devices in Use Now: None Appearance: Older female patient, lying in bed, in NAD Eyes: PERRLA Ears/Nose/Mouth/Throat: Clear Oropharnyx, Mucous Membranes Moist Neck: NL Appearance and Movements; NL JVP Respiratory: Symmetrical Chest Expansion and Respiratory Effort, Clear to Auscultation Cardiovascular: NL Sounds; No Murmurs; No JVD, RRR Abdominal: NL Sounds; No Tenderness; No Distention Extremities: No Edema, No Clubbing, Cyanosis, - - dressing to right knee c/d/i Skin: No Rash or Ulcers Neurological: Alert and Oriented x 3, NL Muscle Strength and Tone Lines/Tubes/Other Access: Clean, Dry and Intact Peripheral IV Nutrition: Taking PO's Result Diagrams: 09/21/16 06:02 09/21/16 06:02 Assess/Plan/Problems-Billing Assessment: Ms. Nicole is an 86 yo female with a PMH of HTN, HLD, OA, PVD, osteoporosis, anemia, and ulcerative colitis who was admitted 09/18/16 for an elective right total knee replacement. - Patient Problems (1) Acute pulmonary edema Code(s): J81.0 - ACUTE PULMONARY EDEMA Comment: Preserved EF on echocardiogram, likely secondary to diastolic HF, exacerbated by fluid overload from IVF and PRBC Will follow blood transfusion today with IV furosemide Recommend patient stay through tomorrow for further observation and repeat IV furosemide prior to d/c Outpatient f/u with PCP. (2) Weakness Code(s): R53.1 - WEAKNESS Comment: Resolved. Appears to be secondary to pulmonary edema from PRBC and IVF. CTA negative for PE but significant for bilatera pleural effusions. Other tests unremarkable. Echocardiogram shows preserved EF, patient appears to have mild diastolic heart failure with moderate pulmonary HTN. (3) Status post total right knee replacement Code(s): Z96.651 - PRESENCE OF RIGHT ARTIFICIAL KNEE JOINT Comment: POD #3, management per ortho HH dropped this morning, plan for 1 unit PRBC Continue PT/OT, pain management Supportive care (4) Anemia Code(s): D64.9 - ANEMIA, UNSPECIFIED Comment: Drop in HH again from 9.5 to 8.3 Likely secondary to acute blood loss following surgery, as well as ulcerative colitis Check stool occult Transfuse 1 unit PRBC, recheck HH tomorrow (5) Ulcerative colitis Code(s): K51.90 - ULCERATIVE COLITIS, UNSPECIFIED, WITHOUT COMPLICATIONS Comment: Continue mesalamine. Continue to trend HH. (6) HTN (hypertension) Code(s): I10 - ESSENTIAL (PRIMARY) HYPERTENSION Comment: SBP 130s to 150s Continue lisinopril (7) HLD (hyperlipidemia) Code(s): E78.5 - HYPERLIPIDEMIA, UNSPECIFIED Comment: Continue atorvastatin. (8) Peripheral vascular disease Code(s): I73.9 - PERIPHERAL VASCULAR DISEASE, UNSPECIFIED Comment: Continue home ASA and statin. (9) DVT prophylaxis Code(s): INE8750 - Comment: Per ortho SCDs Status and Disposition: Inpatient admission. Disposition per ortho. Hospital medicine team consulting for co-medical management.
[2016-09-21 13:04] LABS: Calcium 8.3 mg/dL (8.6-10.3); EGFR African American 86.6 (>60); EGFR Non-African American 67.4 (>60); Potassium 4.1 mmol/L (3.5-5.0)
--- NOTE | 2016-09-21 14:07 | ECHO ---
Patient: STEVAN HICKEY [facility] Rec#: [id number] : 1930 Date: 09/21/2016 Age: 86y Height: 160.02 cm / 63.0 in Weight: 77.11 kg / 170.0 lbs Sex: F BSA: 1.8 Room#: 347 Admit Date#: 09/18/2016 Type: Inpatient Referring: Verito Blanca Reading: Manuel Mendez DO Wardrobe Consultant: Jaky Forbes RDCS CC: Philippe Zepeda MD Transthoracic Echocardiogram Indication: CHF BP: 133/53 HR: 81 Rhythm: NSR Findings History: HTN,HLD,PVD,ostioarthritis,anemia, s/p right total knee(recently). Left Ventricle: The left ventricular chamber size is normal. Mild concentric left ventricular hypertrophy is observed. Global left ventricular wall motion and contractility are within normal limits. There is normal left ventricular systolic function. The estimated ejection fraction is greater than 65%. Discrepant data regarding diastolic function. Left Atrium: The left atrium is slightly dilated. Right Ventricle: The right ventricular chamber size and systolic function are within normal limits. Right Atrium: The right atrial cavity size is normal. Aortic Valve: The aortic valve is trileaflet. There is no evidence of aortic regurgitation. There is no evidence of aortic stenosis. Mitral Valve: The mitral valve leaflets appear normal. There is a trace of mitral regurgitation. There is no evidence of mitral stenosis. Tricuspid Valve: The tricuspid valve leaflets are normal. There is mild tricuspid regurgitation. There is evidence of moderate pulmonary hypertension. There is no tricuspid stenosis. Pulmonic Valve: The pulmonic valve appears normal. There is no evidence of pulmonic regurgitation. There is no pulmonic stenosis. Pericardium: There is no significant pericardial effusion. Aorta: There is no dilatation of the ascending aorta. There is no dilatation of the aortic arch. There is no dilation of the aortic root. Pulmonary Artery: The main pulmonary artery is not well visualized. Venous: The inferior vena cava appears normal in size. There is a greater than 50% respiratory change in the inferior vena cava dimension. Conclusions The left ventricular chamber size is normal. Mild concentric left ventricular hypertrophy is observed. There is normal left ventricular systolic function. The estimated ejection fraction is normal at 65-70%. The left atrium is slightly dilated. The right ventricular chamber size and systolic function are within normal limits. There is mild tricuspid regurgitation. There is evidence of moderate pulmonary hypertension. No prior studies available for comparison at time of interpretation. Measurements Name Value Normal Range RVIDd (AP) 2D 2.4 cm (0.9 - 2.6) RVDdMajor (2D) 3.4 cm (2.2 - 4.4) RAd ISD 4CH 4.4 cm (3.4 - 4.9) RA (A4C)W 3.4 cm (2.9 - 4.6) IVSd (2D) 1.2 cm (0.6 - 1) LVPWd (2D) 1.1 cm (0.6 - 1) LVIDd (2D) 5 cm (3.6 - 5.4) LVIDs (2D) 2.5 cm - LV FS (2D) 50 % (25 - 45) Aortic Annulus 2 cm (1.4 - 2.6) Ao root diameter (2D) 3.1 cm (2.1 - 3.5) Ascending Ao 3 cm (2.1 - 3.4) Aortic arch 2.7 cm (1.8 - 3.4) Descending Ao 0.7 cm - LA dimension (AP) 2D 3.6 cm (2.3 - 3.8) LAd ISD 4CH 6.2 cm (2.9 - 5.3) LA ISD 4CH W 4 cm (2.5 - 4.5) Name Value Normal Range LA ESV SP 4CH (A/L) 47 ml - LA ESV SP 2CH (A/L) 42 ml - LA ESV BP (A/L) 49 ml - LA ESV BP (A/L) index 26.86 ml/m2 - LA ESV SP 4CH (MOD) 44 ml - LA ESV SP 2CH (MOD) 43 ml - Name Value Normal Range MV E-wave Vmax 1.2 m/sec - MV deceleration time 150 msec - MV A-wave Vmax 0.9 m/sec - MV E:A ratio 1.26 ratio - LV septal e' Vmax 0.09 m/sec - LV lateral e' Vmax 0.1 m/sec - LV E:e' septal ratio 13.33 ratio - LV E:e' lateral ratio 1.2 ratio - Name Value Normal Range AV Vmax 1.9 m/sec - AV VTI 39.1 cm - AV peak gradient 14.9 mmHg - AV mean gradient 7.73 mmHg - LVOT Vmax 1.5 m/sec - LVOT VTI 30.6 cm - LVOT peak gradient 8.54 mmHg - LVOT mean gradient 3.93 mmHg - Name Value Normal Range TR Vmax 3.6 m/sec - TR peak gradient 52 mmHg - RAP 3 mmHg - RVSP 55 mmHg - IVC diameter 1.9 cm - Name Value Normal Range PV Vmax 0.8 m/sec - PV peak gradient 2.84 mmHg -
[2016-09-21] MEDS ORDERED: Furosemide IV* 10 MG/ML 2 ML VIAL (20 MG) IV SLOW PU ONE (14:28)
[2016-09-22] MEDS: oxyCODONE/Acetamin 5/325 MG* TAB PO PRN ×2 (01:41→09:35)
[2016-09-22 05:39] LABS: Hematocrit 30 % (35-47); Hemoglobin 9.8 g/dl (12.0-16.0)
[2016-09-22] MEDS ORDERED: Furosemide IV* 10 MG/ML 2 ML VIAL (20 MG) IV SLOW PU ONE (08:00)
--- NOTE | 2016-09-22 08:11 | PN ---
Subjective Date of Service: 09/22/16 Interval History: Patient seen and examined at bedside. She endorses no acute complaints this morning and states, "I feel good." She denies any episodes of wheezing, SOB, chest pain overnight. No acute nursing concerns. Family History: Unchanged from Admission Social History: Unchanged from Admission Past Medical History: Unchanged from Admission Objective Active Medications: Acetaminophen (Tylenol Tab*) 650 mg PO Q4H PRN PRN Reason: PAIN OR TEMPERATURE Albuterol (Ventolin 2.5 Mg/3 Ml Neb.Kerrie*) 2.5 mg INH Q2H PRN PRN Reason: SOB/WHEEZING Aspirin (Aspirin Tab*) 325 mg PO DAILY [facility] Last Admin: 09/21/16 08:01 Dose: Not Given Atorvastatin Calcium (Lipitor*) 20 mg PO DAILY [facility] Last Admin: 09/21/16 08:01 Dose: 20 mg Diphenhydramine HCl (Benadryl Iv*) 12.5 mg IV Q6H PRN PRN Reason: PRURITIS Docusate Sodium (Colace Cap*) 100 mg PO BID [facility] Last Admin: 09/21/16 21:30 Dose: 100 mg Iohexol (Omnipaque 350 (Contrast)-) 69 ml IV ONCE [facility] Stop: 09/22/16 23:59 Last Admin: 09/20/16 16:19 Dose: 69 ml Lactulose (Lactulose*) 30 ml PO Q6H PRN PRN Reason: constipation Last Admin: 09/20/16 20:50 Dose: 30 ml Lisinopril (Prinivil Tab*) 10 mg PO DAILY [facility] Last Admin: 09/21/16 08:00 Dose: 10 mg Magnesium Hydroxide (Milk Of Magnesia Liq*) 30 ml PO Q6H PRN PRN Reason: constipation Last Admin: 09/20/16 17:29 Dose: 30 ml Mesalamine (Lialda (Nf)) 1.2 gm PO DAILY [facility] Last Admin: 09/21/16 08:02 Dose: 1.2 gm Morphine Sulfate (Morphine Inj (Syringe)*) 2 mg IV Q2H PRN PRN Reason: PAIN Morphine Sulfate (Morphine Inj (Syringe)*) 1 mg IV Q2H PRN PRN Reason: PAIN Ondansetron HCl (Zofran Tab*) 4 mg PO Q6H PRN PRN Reason: NAUSEA Last Admin: 09/20/16 07:21 Dose: 4 mg Oxycodone HCl (Roxycodone Tab*) 10 mg PO Q4H PRN PRN Reason: SEVERE PAIN Oxycodone/Acetaminophen (Percocet 5/325 Tab*) 1 tab PO Q3H PRN PRN Reason: PAIN - MODERATE Last Admin: 09/21/16 16:17 Dose: 1 tab Oxycodone/Acetaminophen (Percocet 5/325 Tab*) 2 tab PO Q3H PRN PRN Reason: PAIN - MODERATE Last Admin: 09/22/16 01:41 Dose: 2 tab Vital Signs 09/21/16 09/21/16 09/21/16 08:24 10:01 11:24 Temperature 97.9 F 98.6 F Pulse Rate 91 85 Respiratory 16 16 16 Rate Blood Pressure 133/53 109/35 (mmHg) O2 Sat by Pulse 94 94 Oximetry 09/21/16 09/21/16 09/21/16 11:47 15:33 16:00 Temperature 98.3 F 98.0 F Pulse Rate 85 82 Respiratory 16 17 Rate Blood Pressure 120/39 133/51 (mmHg) O2 Sat by Pulse 93 92 92 Oximetry 09/21/16 09/21/16 09/21/16 16:17 19:43 21:07 Temperature 98.4 F Pulse Rate 89 Respiratory 16 17 18 Rate Blood Pressure 133/53 (mmHg) O2 Sat by Pulse 97 Oximetry 09/21/16 09/21/16 09/21/16 21:30 23:11 23:30 Temperature 98.4 F Pulse Rate 88 Respiratory 18 16 16 Rate Blood Pressure 134/53 (mmHg) O2 Sat by Pulse 95 Oximetry 09/22/16 09/22/16 09/22/16 01:41 03:41 04:14 Temperature 98.3 F Pulse Rate 80 Respiratory 16 16 15 Rate Blood Pressure 123/55 (mmHg) O2 Sat by Pulse 93 Oximetry Oxygen Devices in Use Now: None Appearance: Pleasant, older female, lying in bed, in NAD Eyes: PERRLA Ears/Nose/Mouth/Throat: Mucous Membranes Moist Respiratory: Symmetrical Chest Expansion and Respiratory Effort, Clear to Auscultation - good aeration Cardiovascular: NL Sounds; No Murmurs; No JVD, RRR Abdominal: NL Sounds; No Tenderness; No Distention Extremities: No Edema, No Clubbing, Cyanosis, - - right knee dressing c/d/i, distal pulses 2+, good movement/sensation distally Skin: No Rash or Ulcers Neurological: Alert and Oriented x 3, NL Muscle Strength and Tone Lines/Tubes/Other Access: Clean, Dry and Intact Peripheral IV Nutrition: Taking PO's Result Diagrams: 09/22/16 05:05 09/21/16 06:02 Assess/Plan/Problems-Billing Assessment: Ms. Nicole is an 86 yo female with a PMH of HTN, HLD, OA, PVD, osteoporosis, anemia, and ulcerative colitis who was admitted 09/18/16 for an elective right total knee replacement. - Patient Problems (1) Acute pulmonary edema Code(s): J81.0 - ACUTE PULMONARY EDEMA Comment: Improved Repeat small dose furosemide this AM Preserved EF on echocardiogram, likely secondary to diastolic HF, exacerbated by fluid overload from IVF and PRBC Outpatient f/u with PCP. (2) Weakness Code(s): R53.1 - WEAKNESS Comment: Resolved. Appears to be secondary to pulmonary edema from PRBC and IVF. CTA negative for PE but significant for bilatera pleural effusions. Other tests unremarkable. Echocardiogram shows preserved EF, patient appears to have mild diastolic heart failure with moderate pulmonary HTN. (3) Status post total right knee replacement Code(s): Z96.651 - PRESENCE OF RIGHT ARTIFICIAL KNEE JOINT Comment: POD #4, management per ortho HH stable following PRBC Continue PT/OT, pain management Supportive care (4) Anemia Code(s): D64.9 - ANEMIA, UNSPECIFIED Comment: S/p 1 unit PRBC, HH stable Likely secondary to acute blood loss following surgery, as well as ulcerative colitis Follow-up CBC next week, pt advised to call PCP for follow-up. Patient educated to seek evaluation if dizzy, SOB, chest pain, sudden weakness Patient has known hx of anemia, continue outpatient follow-up (5) Ulcerative colitis Code(s): K51.90 - ULCERATIVE COLITIS, UNSPECIFIED, WITHOUT COMPLICATIONS Comment: Continue mesalamine. (6) HTN (hypertension) Code(s): I10 - ESSENTIAL (PRIMARY) HYPERTENSION Comment: Normotensive Continue lisinopril (7) HLD (hyperlipidemia) Code(s): E78.5 - HYPERLIPIDEMIA, UNSPECIFIED Comment: Continue atorvastatin. (8) Peripheral vascular disease Code(s): I73.9 - PERIPHERAL VASCULAR DISEASE, UNSPECIFIED Comment: Continue home ASA and statin. (9) DVT prophylaxis Code(s): RRL4642 - Comment: Per ortho SCDs Status and Disposition: Inpatient admission. Disposition per ortho. Hospital medicine team consulting for co-medical management.
--- NOTE | 2016-09-22 08:43 | PN ---
Progress Note - Progress Note SOAP: Subjective: Pt sitting on edge of bed with minimal pain. doing well Objective: Vital Signs Temp Pulse Resp BP Pulse Ox 98.3 F 80 15 123/55 93 09/22/16 04:14 09/22/16 04:14 09/22/16 04:14 09/22/16 04:14 09/22/16 04:14 Laboratory Last Values WBC 12.5 10^3/ul (3.5-10.8) H 09/21/16 06:02 RBC 3.33 10^6/ul (4.0-5.4) L 09/21/16 06:02 Hgb 9.8 g/dl (12.0-16.0) L 09/22/16 05:05 Hct 30 % (35-47) L 09/22/16 05:05 MCV 79 fL (80-97) L 09/21/16 06:02 MCH 25 pg (27-31) L 09/21/16 06:02 MCHC 31 g/dl (31-36) 09/21/16 06:02 RDW 16 % (10.5-15) H 09/21/16 06:02 Plt Count 252 10^3/ul (150-450) 09/21/16 06:02 MPV 8 um3 (7.4-10.4) 09/21/16 06:02 Neut % (Auto) 78.7 % (38-83) 09/21/16 06:02 Lymph % (Auto) 9.0 % (25-47) L 09/21/16 06:02 Thayer % (Auto) 9.9 % (1-9) H 09/21/16 06:02 Eos % (Auto) 1.9 % (0-6) 09/21/16 06:02 Baso % (Auto) 0.5 % (0-2) 09/21/16 06:02 Absolute Neuts (auto) 9.9 10^3/ul (1.5-7.7) H 09/21/16 06:02 Absolute Lymphs (auto) 1.1 10^3/ul (1.0-4.8) 09/21/16 06:02 Absolute Monos (auto) 1.2 10^3/ul (0-0.8) H 09/21/16 06:02 Absolute Eos (auto) 0.2 10^3/ul (0-0.6) 09/21/16 06:02 Absolute Basos (auto) 0.1 10^3/ul (0-0.2) 09/21/16 06:02 Absolute Nucleated RBC 0.01 10^3/ul 09/21/16 06:02 Nucleated RBC % 0.1 09/21/16 06:02 INR (Anticoag Therapy) 0.97 (0.89-1.11) 09/19/16 05:08 Sodium 139 mmol/L (133-145) 09/21/16 06:02 Potassium 4.1 mmol/L (3.5-5.0) 09/21/16 06:02 Chloride 109 mmol/L (101-111) 09/21/16 06:02 Carbon Dioxide 26 mmol/L (22-32) 09/21/16 06:02 Anion Gap 4 mmol/L (2-11) 09/21/16 06:02 BUN 13 mg/dL (6-24) 09/21/16 06:02 Creatinine 0.81 mg/dL (0.51-0.95) 09/21/16 06:02 Est GFR ( Amer) 86.6 (>60) 09/21/16 06:02 Est GFR (Non-Af Amer) 67.4 (>60) 09/21/16 06:02 BUN/Creatinine Ratio 16.0 (8-20) 09/21/16 06:02 Glucose 103 mg/dL (70-100) H 09/21/16 06:02 POC Glucose (mg/dL) 88 mg/dL (74-106) 09/20/16 06:27 Calcium 8.3 mg/dL (8.6-10.3) L 09/21/16 06:02 Magnesium 1.7 mg/dL (1.9-2.7) L 09/20/16 07:32 Troponin I 0.00 ng/mL (<0.04) 09/20/16 07:32 B-Natriuretic Peptide 210 pg/mL (-100) H 09/20/16 07:32 Urine Color Straw 09/20/16 09:25 Urine Appearance Clear 09/20/16 09:25 Urine pH 5.0 (5-9) 09/20/16 09:25 Ur Specific [place] 1.011 (1.010-1.030) 09/20/16 09:25 Urine Protein Negative (Negative) 09/20/16 09:25 Urine Ketones Negative (Negative) 09/20/16 09:25 Urine Blood Negative (Negative) 09/20/16 09:25 Urine Nitrate Negative (Negative) 09/20/16 09:25 Urine Bilirubin Negative (Negative) 09/20/16 09:25 Urine Urobilinogen Negative (Negative) 09/20/16 09:25 Ur Leukocyte Esterase Negative (Negative) 09/20/16 09:25 Urine Glucose Negative (Negative) 09/20/16 09:25 Blood Type A Negative 09/21/16 06:02 Antibody Screen Negative 09/21/16 06:02 Crossmatch See Detail 09/21/16 06:02 incision: c/d/i PE: NVI Assessment: s/p right TKA Plan: 1) ASA 325mg QD x 4 weeks for DVT prophylaxis 2) WBAT 3) F/U with Dr. Garcia 10-14 days 4) Home today; patient cleared by Hospitalist
[2016-09-22 08:52] VITALS: BP 135/51
[2016-09-22] MEDS: Aspirin TAB* 325 MG PO SCH (09:30)
[2016-09-22] MEDS: Atorvastatin* 20 MG TAB PO SCH (09:30)
[2016-09-22] MEDS: Docusate CAP* 100 MG PO SCH (09:30)
[2016-09-22] MEDS: Lisinopril TAB* 10 MG PO SCH (09:31)
[2016-09-22] MEDS: PTO: Mesalamine (NF) 1.2 GM TAB PO SCH (09:31)
--- NOTE | 2016-09-22 23:01 | DS ---
DISCHARGE SUMMARY: DATE OF ADMISSION: 09/18/16 DATE OF DISCHARGE: 09/22/16 SURGEON: Virgilio Garcia MD PRINCIPAL DIAGNOSIS: Severe arthritis of the right knee. Secondary diagnoses: Chronic anemia Acute blood loss anemia, tranfused 2-3 units Packed red cells Bilateral pleural effusions Hiatus hernia, intrathoracic stomach Medical team treated for some fluid overload , ? Mild Congestive heart failure DISCHARGE DIAGNOSIS: As above. HISTORY OF PRESENT ILLNESS: Ms. Nicole is an 86-year-old female with complaints of right knee pain secondary to severe osteoarthritis of the right knee. She failed conservative management and elected to proceed with a right total knee arthroplasty. HOSPITAL COURSE: Ms. Nicole was admitted electively to the hospital on who underwent a right total knee arthroplasty. She tolerated the procedure well. Postoperatively, she was placed on aspirin for DVT prophylaxis. On postoperative day #1, her H and H was 8 and 26. On postoperative day #2, 9.5 and 30. On postoperative day #3, 8.3 and 26. On postoperative day #4, 9.8 and 30. On postoperative day #1 secondary to her low hematocrit, she was given 2 units of packed red blood cells. She continues to make daily improvement with physical therapy and at the time of discharge on 09/22/16, she was afebrile, her vital signs are stable and she was ambulating well. She was able to control her pain without p.o. medications and she was cleared medically by the hospitalist to be discharged home. DISCHARGE MEDICATIONS: 1. Albuterol. 2. Aspirin 325. 3. Lipitor 20 mg daily. 4. Colace 100 mg twice a day. 5. Omnipaque 350. 6. Lisinopril 10 mg daily. 7. Mesalamine 1.2 g daily. 8. Percocet 5/325 one to two tabs every 4 to 6 hours. PHYSICAL EXAMINATION UPON DISCHARGE: She is afebrile. Her vital signs are stable. Her wound was clean, dry and healing well. Her lower extremity muscle group strengths were intact at 5/5. She had 2+ dorsalis pedis pulses and intact sensation. She was walking well with the aid of a walker. DISCHARGE INSTRUCTIONS: She is discharged home. She was given prescription for Percocet 5/325 to take 1 to 2 tablets every 4 to 6 hours as needed for pain. She was also instructed to take aspirin 325 once a day for a month. She will follow up with Dr. Garcia in 10 to 14 days. She is weightbearing as tolerated. We have asked her to call our office if she has any questions or concerns. MARKUS ORTEGA [id number]/[facility] #: [id number] SON
== END 2016-09-22 12:00 | disposition home health service (06) | DRG 469 ==
LOC: AA 06:05 → SSU 13:51
PROVIDERS: ADMIT Orthopaedic Surgery; ATTEND Orthopaedic Surgery
PROC: 0SRC0J9 Replacement of Right Knee Joint with Synthetic Substitute, Cemented, Open Approach (ICD-10-PCS; 2016-09-18)
PROC: 30233N1 Transfusion of Nonautologous Red Blood Cells into Peripheral Vein, Percutaneous Approach (ICD-10-PCS; principal; 2016-09-18 07:30)
DX: M17.11 Unilateral primary osteoarthritis, right knee (principal); I50.33 Acute on chronic diastolic (congestive) heart failure; J90 Pleural effusion, not elsewhere classified; D62 Acute posthemorrhagic anemia; I27.2 Other secondary pulmonary hypertension; K51.90 Ulcerative colitis, unspecified, without complications; I11.0 Hypertensive heart disease with heart failure; Z79.82 Long term (current) use of aspirin; M21.161 Varus deformity, not elsewhere classified, right knee; E78.5 Hyperlipidemia, unspecified; I73.9 Peripheral vascular disease, unspecified; M81.0 Age-related osteoporosis without current pathological fracture; R53.1 Weakness; M24.561 Contracture, right knee; Z82.49 Family history of ischemic heart disease and other diseases of the circulatory system; K44.9 Diaphragmatic hernia without obstruction or gangrene
CPT/HCPCS: 36415; 71010; 71275; 80048; 81003; 83735; 83880; 84484; 85014; 85018; 85025; 85027; 85610; 86850; 86900; 86901; 86922; 88305; 88311; 93005; 93306; 94760; A9270-GY; C1776; J0690; J1100; J1885; J1940; J2250; J2405; J2704; J2795; J3010; P9016; P9040; Q9967

== ENCOUNTER 2017-01-06 12:29 | Emergency (ER) | payer MEDICARE, OTHER ==
--- NOTE | 2017-01-06 15:34 | UC ---
Cardiac HPI - HPI Summary HPI Summary: left and right anterior lower chest pain began after a fall in [place] last week---She drove home from [place]---but now has pain in her anterior lower chest and fatigue for a couple of days. She denies sub-sternal chest pain Shortness of breath - History of Current Complaint Chief Complaint: UCTrauma Stated Complaint: SIDE PAIN Time Seen by Provider: 01/06/17 15:01 Hx Obtained From: Patient Hx Last Menstrual Period: POST Onset/Duration: Gradual Onset, Lasting Days, Still Present, Worse Since - Last night Initial Severity: Moderate Current Severity: Moderate Chest Pain Location: Left Anterior, Right Anterior Character: Tightness, Sharp/Stabbing Aggravating: Exertion, Position Alleviating: Spontaneous Resolution Associated Signs & Symptoms: Positive: Chest Pain, Nausea/Vomiting - pain gets so bad she gets nauseated - Allergy/Home Medications Allergies/Adverse Reactions: Allergies Allergy/AdvReac Type Severity Reaction Status Date / Time No Known Allergies Allergy Verified 09/18/16 06:26 PMH/Surg Hx/FS Hx/Imm Hx Previously Healthy: No Endocrine History: Dyslipidemia Cardiovascular History: Hypertension - Surgical History Surgical History: Yes Surgery Procedure, Year, and Place: kidney surgery for bladder pain 1980 to release pressure on a blood vessel per pt. no residual effects. knee right acl repair; right shoulder arthroscopic - Family History Known Family History: Positive: None - Social History Occupation: Retired Lives: With Family Alcohol Use: None Substance Use Type: None Smoking Status (MU): Never Smoked Tobacco Have You Smoked in the Last Year: No - Immunization History Most Recent Influenza Vaccination: none Most Recent Pneumonia Vaccination: none Review of Systems Constitutional: Fatigue Skin: Negative Eyes: Negative ENT: Negative Respiratory: Negative Cardiovascular: Chest Pain Gastrointestinal: Abdominal Pain, Nausea Genitourinary: Negative Motor: Negative Neurovascular: Negative Musculoskeletal: Negative Neurological: Negative Psychological: Negative All Other Systems Reviewed And Are Negative: Yes Physical Exam Triage Information Reviewed: Yes Appearance: Well-Appearing, Well-Nourished, Pain Distress - mild Vital Signs: Initial Vital Signs Temp 99.0 F 01/06/17 14:51 Pulse 117 01/06/17 14:51 Resp 17 01/06/17 14:51 BP 157/89 01/06/17 14:51 Pulse Ox 98 01/06/17 14:51 Vital Signs Reviewed: Yes Eye Exam: Normal Eyes: Positive: Conjunctiva Clear ENT Exam: Normal ENT: Positive: Normal ENT inspection, Hearing grossly normal, Pharynx normal, TMs normal. Negative: Nasal congestion, Nasal drainage, Trismus, Muffled/ hoarse voice Dental Exam: Normal Neck exam: Normal Neck: Positive: Supple, Nontender, No Lymphadenopathy Respiratory Exam: Normal Respiratory: Positive: Chest non-tender, Lungs clear, Normal breath sounds, No respiratory distress, No accessory muscle use Cardiovascular Exam: Normal Cardiovascular: Positive: No Murmur, Pulses Normal, Brisk Capillary Refill, Tachycardia Abdominal Exam: Normal Abdomen Description: Positive: Nontender, No Organomegaly, Soft. Negative: CVA Tenderness (R), CVA Tenderness (L) Bowel Sounds: Positive: Present Musculoskeletal Exam: Normal Musculoskeletal: Positive: Strength Intact, ROM Intact, No Edema Neurological Exam: Normal Neurological: Positive: Alert, Muscle Tone Normal Psychological Exam: Normal Skin Exam: Normal Skin: Positive: Other - Resolving contusion of face Diagnostics - EKG Cardiac Rate: Tachycardia Ectopy: None ST Segment: Normal - Assessment/Plan Course Of Treatment: transfer to hospital---wishes for to drive - Differential Diagnoses - Chest Pain Differential Diagnosis/HQI/PQRI: Angina, Chest Wall, Pulmonary Embolism - Clinical Impression Provider Diagnoses: Tachycardia, chest pain Discharge - Discharge Plan Condition: Stable Disposition: HOME Patient Education Materials: Chest Pain (ED) Referrals: Philippe Zepeda MD [Primary Care Provider] - Additional Instructions: We recommend that you report directly to the emergency department for a complete evaluation of your pain and fatique
[2017-01-06 16:10] VITALS: BP 151/86
== END 2017-01-06 15:46 | disposition left against medical advice (07) ==
LOC: UCEAST 12:29
DX: R07.9 Chest pain, unspecified (principal); R00.0 Tachycardia, unspecified
CPT/HCPCS: 93005; 99212; G0463

== ENCOUNTER 2017-01-06 16:32 | Observation (INO) | payer MEDICARE, OTHER ==
[2017-01-06] MEDS ORDERED: Aspirin Low Dose CHEW TAB* 81 MG PO ONE (17:27)
[2017-01-06 18:12] LABS: Hematocrit 33 % (35-47); Hemoglobin 10.5 g/dl (12.0-16.0); Mean Corpuscular HGB Conc 31 g/dl (31-36); Mean Corpuscular Hemoglobin 25 pg (27-31); Mean Corpuscular Volume 80 fL (80-97); Mean Platelet Volume 7 um3 (7.4-10.4); Red Blood Count 4.17 10^6/ul (4.0-5.4); Red Cell Distribution Width 16 % (10.5-15); White Blood Count 8.4 10^3/ul (3.5-10.8)
--- NOTE | 2017-01-06 18:21 | RAD ---
Indication: Fatigue, weakness. Comparison: September 20, 2016 CT chest. Technique: Upright AP 1800 hours Report: Large retrocardiac hiatal hernia with air-fluid level. Negative for cardiomegaly. Unremarkable central pulmonary vasculature. Elevated lung volumes with patchy rarefaction of the interstitial markings in the upper lung zones. No pulmonary infiltrate, pleural effusion, pneumothorax. Negative for free air beneath the diaphragm. IMPRESSION: 1. Stigmata of potential chronic obstructive pulmonary disease. 2. Large retrocardiac hiatal hernia without gross change compared with the prior CT. 3. No acute cardiopulmonary process evident.
[2017-01-06 18:27] LABS: Albumin 3.8 g/dL (3.2-5.2); BUN/Creatinine Ratio 11.9 (8-20); Calcium 9.3 mg/dL (8.6-10.3); EGFR African American 83.1 (>60); EGFR Non-African American 64.6 (>60); Globulin 3.1 g/dL (2-4); Potassium 4.5 mmol/L (3.5-5.0); Total Bilirubin 0.6 mg/dL (0.2-1.0); Total Protein 6.9 g/dL (6.4-8.9)
--- NOTE | 2017-01-06 18:38 | RAD ---
Indication: RIGHT upper quadrant pain. Comparison: September 20, 2016 CT chest which includes part of the gallbladder. Technique: RIGHT upper quadrant ultrasound. Report: Appropriate direction flow documented in the portal and hepatic veins. 16.1 cm liver is normal in echogenicity. Negative for focal hepatic lesions. Negative for intrahepatic biliary dilatation. 3.6 mm common bile duct. Adequately distended gallbladder is remarkable for a 2.3 cm shadowing stone and probable additional stones and biliary sludge. The gallbladder wall is upper normal at 2.8 mm. No conspicuous pericholecystic fluid. No compelling sonographic Germain's sign. Negative for sonographic Germain's sign. The pancreas is poorly visualized due to body habitus and bowel gas with the visualized pancreas grossly unremarkable. Negative for ascites. 9.1 x 4.5 x 4.4 cm RIGHT kidney is unremarkable. IMPRESSION: Cholelithiasis and biliary sludge without compelling secondary findings to favor acute cholecystitis.
[2017-01-06] MEDS ORDERED: Iohexol 350* (CONTRAST) 500 ML MDV IV ONE (18:47)
--- NOTE | 2017-01-06 19:27 | RAD ---
INDICATION: Recent prolonged travel. Pleuritic chest pain. Bilateral rib pain. COMPARISON: January 06, 2017 chest radiograph and September 20, 2016 CT chest. TECHNIQUE: Multidetector CT images were obtained from the lung apices to the upper abdomen with 66 mL Omnipaque 350 IV contrast. Pulmonary angiogram protocol. Multiplanar reformation including with maximum intensity projection. REPORT: Chronic large hiatal hernia/intrathoracic stomach with resulting LEFT greater than RIGHT basilar compressive atelectasis without gross change compared with the prior exam. The lungs and pleural spaces are otherwise clear. Negative for pneumothorax. Negative for thoracic lymphadenopathy. Negative for cardiomegaly, pericardial effusion, or aneurysm or dissection of the thoracic aorta. Mild atherosclerotic plaque of the thoracic aorta. Coronary artery calcifications. Negative for pneumomediastinum. No filling defects are identified from the main to the subsegmental pulmonary arteries to indicate presence of a pulmonary embolism. Cholelithiasis without additional CT abnormality of the gallbladder. Negative for biliary dilatation. Negative for rib or other thoracic fracture or suspicious focal osseous lesions. Multilevel thoracic degenerative spondylosis. IMPRESSION: 1. Negative for pulmonary embolism. 2. Negative for pneumonia. Resolved pleural effusions compared with the prior exam. 3. Unchanged large hiatal hernia/intrathoracic stomach with resulting LEFT greater than RIGHT lower lobe atelectasis. 4. Coronary artery calcifications. 5. Cholelithiasis.
[2017-01-06] MEDS ORDERED: Nitroglycerin TAB 0.4 MG* 0.4 MG TAB SL ONE (19:55)
[2017-01-06] MEDS ORDERED: Senna TAB PO PRN (20:29)
[2017-01-06] MEDS ORDERED: Magnesium Hydroxide LIQ* 30 ML UDC PO PRN (20:29)
[2017-01-06] MEDS ORDERED: Morphine INJ* 2 MG/ML 1 ML SYRINGE IV PRN (20:29)
[2017-01-06] MEDS ORDERED: Docusate CAP* 100 MG PO PRN (20:29)
[2017-01-06] MEDS ORDERED: Al Hydrox/Mg Hydrox/Simet LIQ* 30 ML UDC PO PRN (20:29)
[2017-01-06] MEDS ORDERED: NS 0.9% 1000 ML* 1,000 ML IV ONE (20:29)
[2017-01-06] MEDS ORDERED: Acetaminophen TAB* 325 MG PO PRN (20:29)
[2017-01-06] MEDS ORDERED: Atorvastatin* 20 MG TAB PO SCH (21:00)
[2017-01-06 21:22] LABS: Urine Bacteria Absent (Absent); Urine Bilirubin Negative (Negative); Urine Glucose Negative (Negative); Urine Nitrite Negative (Negative)
[2017-01-06] MEDS: Lisinopril TAB* 10 MG PO SCH (22:40)
[2017-01-06] MEDS: Gabapentin CAP(*) 100 MG PO SCH (22:40)
[2017-01-06] MEDS: oxyCODONE/Acetamin 5/325 MG* TAB PO PRN (22:41)
[2017-01-06] MEDS: ValACYclovir (*) 1 GM TAB PO SCH (22:44)
[2017-01-06] MEDS: Heparin VIAL(*) 5000 UNITS/ML VIAL (FIVE THOUSAND) SUBCUT SCH (22:46)
[2017-01-06] MEDS: NS 0.9% 1000 ML* 1,000 ML IV SCH (22:48)
[2017-01-07] MEDS: oxyCODONE/Acetamin 5/325 MG* TAB PO PRN ×2 (03:59→08:32)
[2017-01-07] MEDS: Ondansetron INJ* 2 MG/ML VIAL IV PRN ×2 (04:03→11:29)
--- NOTE | 2017-01-07 05:26 | HP ---
HISTORY AND PHYSICAL: DATE OF ADMISSION: 01/06/17 TIME OF EVALUATION: 1999 CHIEF COMPLAINT: Chest pain/rib pain. HISTORY OF PRESENT ILLNESS: This is an 86-year-old female with past medical history of hypertension, peripheral vascular disease, who presented to the emergency room with bilateral rib cage pain that has been going on for the past 2 to 3 days. The patient states she was recently in [place] on vacation. She returned back on 12/31/16, which she did drive for this trip, was feeling fine when she came back into town. She did have an episode where she fell on vacation, landed on her face, but did not have any significant amount of pain. No loss of consciousness, no headache and then up until about 2 or 3 days ago, she has been having bilateral rib pain, significantly more worse on the left side than the right. She has had some nausea and decreased appetite. No shortness of breath, no diaphoresis. No abdominal pain, no diarrhea. No lower extremity swelling. No recent URI symptoms. She states her ulcerative colitis is under control. Otherwise, remaining review of systems is negative. In the emergency room, the patient had labs and imaging including a CT that was negative for PE and was referred to the hospitalist service for this persistent pain, also noted to have persistent tachycardia. In the emergency room, the patient was given 325 mg of aspirin, nitro, and a liter of normal saline. PAST MEDICAL HISTORY: 1. Arthritis. 2. Peripheral vascular disease. 3. Hypertension. 4. Hyperlipidemia. 5. Ulcerative colitis. 6. Anemia. 7. Osteoporosis. PAST SURGICAL HISTORY: 1. Status post right knee replacement in September 2016. 2. History of knee arthroscopies. 3. History of femoral popliteal bypass, left lower extremity in 2014. 4. History of abdominal surgery related to kidney stones. ALLERGIES: No known drug allergies. SOCIAL HISTORY: The patient lives in home with her , who is her healthcare proxy. No history of smoking, alcohol, or illicit drug use. She has 3 grown daughters. Code status is full code. FAMILY HISTORY: Unknown. REVIEW OF SYSTEMS: A 14-point review of systems as mentioned in the HPI. Pertinent positives and negatives are mentioned in the HPI, otherwise negative. PHYSICAL EXAMINATION GENERAL: In no acute distress, resting comfortably with her and her daughter at the bedside. VITAL SIGNS: Temp 99, T-max 99.2, pulse rate 109, respiratory rate 19, oxygen saturation 98% on room air, blood pressure 143/73. HEENT: Head normocephalic. Pupils are equal and reactive. Anicteric. The patient has some mild ecchymosis over her right cheek. Oropharynx - mucous membranes are moist. No erythema or exudate. NECK: Supple. RESPIRATORY: Clear to auscultation. No wheezes, rhonchi, or rales. CARDIAC: Regular rate and rhythm. No murmurs, rubs, or gallops. ABDOMEN: Soft, nontender, and nondistended. EXTREMITIES: The patient with chronic left lower extremity swelling, distal bilateral pulses DPs. NEUROLOGIC: Alert and oriented x3. No focal neurologic deficits. MUSCULOSKELETAL: The patient with light significant tenderness over the lower mid clavicular rib cage region, worse on the left than right, no lesions or vesicles or abnormalities are appreciated. DIAGNOSTIC STUDIES/LAB DATA: Laboratory data: White count 8.4, hemoglobin 10.5, hematocrit 33, platelets 488. Sodium 136, potassium 4.5, chloride 102, bicarb 27, BUN 10, creatinine 0.84, glucose 102, alk phos 173, troponin 0. Urinalysis shows +2 leuks, +2 whites. Squamous cell is present. Radiographic data: Chest thorax CTA shows negative for PE, negative for pneumonia, resolved pleural effusion compared to prior exam, unchanged large hiatal hernia, intrathoracic stomach with resulting left greater than right lower lobe atelectasis. Coronary artery calcifications, cholelithiasis. Gallbladder ultrasound shows cholelithiasis and biliary sludge without compelling secondary findings to favor acute cholecystitis. EKG shows sinus tachycardia. Chest x-ray, stigmata of potential COPD, large retrocardiac hiatal hernia without gas, change from prior CT, no acute cardiopulmonary process evident. ASSESSMENT: This is an 86-year-old female with past medical history of peripheral vascular disease, hypertension, who presents to the emergency room with bilateral rib cage pain and shown to have tachycardia. Rib pain assessment. Assessment: Param's physical exam, her tenderness is really from light touch concerning for more musculoskeletal or neuropathic pain. This could be prodrome for herpes zoster, it is bilateral which would be unusual for herpes zoster outbreak, but it seems it is more dramatically significant on the left side. She has no history of zoster or shingles in the past, but there is no other clear indication for her pain, it does not seem to be cardiac or pulmonary. Plan: We will admit her to observation to telemetry. We will trend her troponins. She did have a stress test she states back in August that was unremarkable. I will order VZV titers, start her on Valtrex for now, pain control, and some gentle hydration and put her on gabapentin for her neuropathic pain. If she has shown improvement, then we will continue this regimen. If her titers are negative, would stop the Valtrex, and then follow up with her primary care physician if her further workup is unremarkable. CHRONIC MEDICAL PROBLEMS: 1. We will resume her home medications as prescribed. 2. Diet. We will place her on a regular heart healthy diet. 3. DVT prophylaxis. The patient's score is high risk. We will place her on heparin subcu t.i.d. 4. Code status, full code. PATIENT TIME: Greater than 60 minutes were spent doing the history and physical , more than half the time was spent in direct patient contact. [id number]/[facility] #: [id number] SON
[2017-01-07] MEDS: Heparin VIAL(*) 5000 UNITS/ML VIAL (FIVE THOUSAND) SUBCUT SCH (06:17)
[2017-01-07] MEDS: ValACYclovir (*) 1 GM TAB PO SCH (06:17)
[2017-01-07] MEDS: Gabapentin CAP(*) 100 MG PO SCH (08:28)
[2017-01-07] MEDS: Lisinopril TAB* 10 MG PO SCH (08:30)
[2017-01-07] MEDS ORDERED: Aspirin EC Low Dose* 81 MG TAB.EC PO SCH (09:00)
[2017-01-07] MEDS: NS 0.9% 1000 ML* 1,000 ML IV SCH (09:12)
--- NOTE | 2017-01-07 10:51 | PN ---
Subjective Date of Service: 01/07/17 Interval History: Pt is feeling well. She is no longer having any of the pain to light touch. She describes/points to me having pain around her flanks (not ribs or chest). No SOB. Objective Active Medications: Acetaminophen (Tylenol Tab*) 650 mg PO Q4H PRN PRN Reason: FEVER/PAIN Al Hydrox/Mg Hydrox/Simethicone (Maalox Plus*) 30 ml PO Q6H PRN PRN Reason: INDIGESTION Aspirin (Aspirin Ec Low Dose*) 81 mg PO DAILY [facility] Last Admin: 01/07/17 08:31 Dose: 81 mg Atorvastatin Calcium (Lipitor*) 20 mg PO 2100 [facility] Last Admin: 01/06/17 22:39 Dose: 20 mg Docusate Sodium (Colace Cap*) 100 mg PO BID PRN PRN Reason: CONSTIPATION Last Admin: 01/07/17 08:28 Dose: 100 mg Gabapentin (Neurontin Cap(*)) 100 mg PO BID [facility] Last Admin: 01/07/17 08:28 Dose: 100 mg Heparin Sodium (Porcine) (Heparin Vial(*)) 5,000 units SUBCUT Q8HR [facility] Last Admin: 01/07/17 06:17 Dose: 5,000 units Sodium Chloride (Ns 0.9% 1000 Ml*) 1,000 mls @ 100 mls/hr IV PER RATE [facility] Last Admin: 01/07/17 09:12 Dose: 100 mls/hr Lisinopril (Prinivil Tab*) 10 mg PO BID [facility] Last Admin: 01/07/17 08:30 Dose: 10 mg Magnesium Hydroxide (Milk Of Magnesia Liq*) 30 ml PO Q4H PRN PRN Reason: CONSTIPATION Metoprolol Tartrate (Lopressor Tab*) 12.5 mg PO Q12HR [facility] Morphine Sulfate (Morphine Inj (Syringe)*) 2 mg IV Q4H PRN PRN Reason: PAIN Ondansetron HCl (Zofran Inj*) 4 mg IV Q4H PRN PRN Reason: NAUSEA/VOMITING Last Admin: 01/07/17 04:03 Dose: 4 mg Oxycodone/Acetaminophen (Percocet 5/325 Tab*) 1 tab PO Q4H PRN PRN Reason: Pain Last Admin: 01/07/17 08:32 Dose: 1 tab Senna (Senokot Tab*) 1 tab PO BID PRN PRN Reason: CONSTIPATION Last Admin: 01/07/17 08:28 Dose: 1 tab Valacyclovir HCl (Valtrex 1 Gm(*)) 1 gm PO Q8HR BERRY PRN Reason: Protocol Last Admin: 01/07/17 06:17 Dose: 1 gm Vital Signs 01/06/17 01/06/17 01/06/17 20:30 21:00 21:01 Temperature Pulse Rate 108 111 Respiratory 23 20 Rate Blood Pressure 145/84 129/102 (mmHg) O2 Sat by Pulse 96 100 Oximetry 01/06/17 01/06/17 01/06/17 21:15 21:30 21:35 Temperature 97.8 F 99.2 F Pulse Rate 110 106 109 Respiratory 20 18 19 Rate Blood Pressure 120/81 154/66 143/73 (mmHg) O2 Sat by Pulse 98 96 Oximetry 01/06/17 01/06/17 01/07/17 22:40 22:41 00:40 Temperature Pulse Rate Respiratory 18 16 18 Rate Blood Pressure (mmHg) O2 Sat by Pulse Oximetry 01/07/17 01/07/17 01/07/17 00:41 01:43 03:59 Temperature 98.2 F Pulse Rate 104 Respiratory 18 20 18 Rate Blood Pressure 139/77 (mmHg) O2 Sat by Pulse 94 Oximetry 01/07/17 01/07/17 01/07/17 05:59 06:10 07:49 Temperature 98.4 F 98.1 F Pulse Rate 100 101 Respiratory 18 20 20 Rate Blood Pressure 133/68 133/79 (mmHg) O2 Sat by Pulse 96 96 Oximetry 01/07/17 01/07/17 01/07/17 08:00 08:28 08:32 Temperature Pulse Rate Respiratory 18 18 18 Rate Blood Pressure (mmHg) O2 Sat by Pulse Oximetry Oxygen Devices in Use Now: None Appearance: Elderly female sitting up in bed sleeping, awakens to voice, NAD Eyes: No Scleral Icterus Ears/Nose/Mouth/Throat: Mucous Membranes Moist Respiratory: Symmetrical Chest Expansion and Respiratory Effort, Clear to Auscultation Cardiovascular: NL Sounds; No Murmurs; No JVD, - - mildly tachycardic but regular Abdominal: NL Sounds; No Tenderness; No Distention Extremities: No Clubbing, Cyanosis Skin: No Rash or Ulcers, No Nodules or Sclerosis Neurological: Alert and Oriented x 3 Result Diagrams: 01/06/17 18:00 01/06/17 18:00 Assess/Plan/Problems-Billing Ms Nicole is an 86 yo F who has a h/o HTN, HLD, UC and osteoporosis who presented to the ER with c/o pain to light touch over her bilateral ribs but then later clarified to be her flanks. - Patient Problems (1) Flank pain Current Visit: Yes Status: Acute Code(s): R10.9 - UNSPECIFIED ABDOMINAL PAIN SNOMED Code(s): 093707718 Comment: Etiology is not clear. Today she clearly pointed to her flanks as where the pain was. She no longer has pain. ? radicular pain-will get thoracic spine xray to eval for compression fx related to her recent fall. ? shingles- seems unlikely as her pain was bilateral and there is no rash yet. Not liklely at all to be cardiac given the location, negative trops and negative stress test 08/2016. I think she can go home today. Follow up with Dr Zepeda Saturday. (2) HTN (hypertension) Current Visit: Yes Status: Chronic Code(s): I10 - ESSENTIAL (PRIMARY) HYPERTENSION SNOMED Code(s): 70523600 Comment: BP is slightly elevated start metoprolol tartrate 12.5mg BID which will also help with her mild tachycardia. (3) Peripheral vascular disease Current Visit: Yes Status: Chronic Code(s): I73.9 - PERIPHERAL VASCULAR DISEASE, UNSPECIFIED SNOMED Code(s): 360997568 Comment: Continue ASA and statin. (4) Ulcerative colitis Current Visit: Yes Status: Chronic Code(s): K51.90 - ULCERATIVE COLITIS, UNSPECIFIED, WITHOUT COMPLICATIONS SNOMED Code(s): 18827624 Comment: Continue mesalamine. (5) HLD (hyperlipidemia) Current Visit: Yes Status: Chronic Code(s): E78.5 - HYPERLIPIDEMIA, UNSPECIFIED SNOMED Code(s): 98612618 Comment: Continue atorvastatin. (6) DVT prophylaxis Current Visit: Yes Status: Acute Code(s): OMN9977 - SNOMED Code(s): 689258256 Comment: SQ heparin (7) Full code status Current Visit: Yes Status: Acute Code(s): Z78.9 - OTHER SPECIFIED HEALTH STATUS SNOMED Code(s): 741165388 Status and Disposition: d/c home
[2017-01-07] MEDS ORDERED: Metoprolol Tartrate TAB* 25 MG PO SCH (11:00)
--- NOTE | 2017-01-07 12:36 | RAD ---
HISTORY: Evaluate for compression fracture COMPARISONS: CT of the chest dated January 06, 2017 VIEWS: 4, Frontal and lateral views of the thoracic spine. FINDINGS: ALIGNMENT: The alignment is normal. VERTEBRAL BODIES: The vertebral body heights are normal. The interpedicular distances are normal. There is multilevel bridging anterolateral marginal osteophyte formation. JOINTS: Unremarkable. INTERVERTEBRAL DISCS: There is diffuse loss of intervertebral disc height. SOFT TISSUE: Unremarkable OTHER: The visualized lungs are clear. IMPRESSION: DEGENERATIVE CHANGES. THE VERTEBRAL BODIES ARE PRESERVED IN HEIGHT.
[2017-01-07 14:04] VITALS: BP 116/52
--- NOTE | 2017-01-08 02:00 | DS ---
CC: Dr. Zepeda * DISCHARGE SUMMARY: DATE OF ADMISSION: 01/06/17 DATE OF DISCHARGE: 01/07/17 PRIMARY CARE PROVIDER: Dr. Zepeda. PRINCIPAL DIAGNOSIS: Bilateral flank pain of unclear etiology - possible shingles versus radicular pain. SECONDARY DIAGNOSES: 1. Hypertension. 2. Ulcerative colitis. DISCHARGE MEDICATIONS: 1. Mesalamine 1.2 g p.o. daily. 2. Lisinopril 10 mg p.o. b.i.d. 3. Lipitor 20 mg p.o. daily. 4. Aspirin 81 mg p.o. daily. 5. Valacyclovir 1 g p.o. q.8 hours to be continued for now; however, if shingles is ultimately ruled out, this can be discontinued. 6. Metoprolol tartrate 12.5 mg p.o. q.12 hours (new). HOSPITAL COURSE: Ms. Nicole is an 86-year-old female, who presented to the emergency room on 01/06/17 with complaints of what was initially described as a chest and rib pain; however, when I asked her, she pointed to her bilateral flanks. She was felt to have likely musculoskeletal pain versus neuropathic pain , possibly related to shingles. The patient was started on Valtrex for questionable shingles despite there being no rash. The patient was ruled out for an acute coronary syndrome. Ultimately, the patient's pain resolved overnight. The etiology still remains unclear. I suspect this is likely musculoskeletal and not related to shingles as it is bilateral. I have continued the patient on Valtrex for now as if this does glove turner and former to be shingles , there would be benefit; however, at the patient's followup appointment with her primary care provider this coming Saturday, the decision should be made whether or not she continues on the Valtrex. The patient did undergo CTA of the chest, which ruled out PE. Additionally, thoracic spine x-rays were obtained that did not reveal any evidence of compression fracture. At this point, the patient is stable for discharge home. During the course of the patient's hospitalization, she was noted to be mildly tachycardic. Her tachycardia has improved over the course of the hospitalization. This is questionably related to volume depletion as she does seem to be improving with hydration. Her urinalysis revealed an elevated specific gravity of urine indicating a possible dehydration. In addition to the patient receiving IV fluids, I have started her on metoprolol tartrate 12.5 mg p.o. twice daily, which will work for both her tachycardia and mildly elevated blood pressure. The patient's primary care provider should follow up on the need to continue on metoprolol tartrate as well. FOLLOWUP CONCERNS: The patient is being discharged to home today, 01/07/17. She is to follow up with Dr. Zepeda on 01/09/17, it is an already scheduled appointment. ACTIVITY LEVEL: As tolerated. DIET: Low fat. CONDITION ON DISCHARGE: Stable. TIME SPENT: Twenty five minutes were spent discharging this patient. [id number]/[facility] #: [id number] SON
--- NOTE | 2017-01-08 07:59 | ED ---
Morgan Ann SooYoung, scribed for Randall Morales MD on 01/06/17 at 1739 . Complex/Multi-Sys Presentation - HPI Summary HPI Summary: An 86 y/o F presents to ED with c/o pain around rib cage onset approx one week ago. Pt fell onto a hard tile floor almost two weeks ago. Pt has had a L ecchymosis under her eye since, denies LOC at the time. The rib pain occurred several days after the fall. Pain has prevented her from sleeping well over the past few days. Associated sx: fatigue, nausea. Denies fever, chills, diaphoresis , SOB, vomiting/diarrhea, melena. Pt traveled from [place] to [place] by car in past two weeks. Aggravating actors: laughing. KNA. - History Of Current Complaint Chief Complaint: EDGeneral Time Seen by Provider: 01/06/17 17:26 Hx Obtained From: Patient Onset/Duration: Lasting Days, Still Present Timing: Constant Severity Currently: Moderate Severity Initially: Moderate Location: Pain At: - rib cage Aggravating Factor(s): laughing Associated Signs And Symptoms: Positive: Nausea, Other - pos: fatigue - Allergies/Home Medications Allergies/Adverse Reactions: Allergies Allergy/AdvReac Type Severity Reaction Status Date / Time No Known Allergies Allergy Verified 01/06/17 17:54 PMH/Surg Hx/FS Hx/Imm Hx Previously Healthy: No Endocrine/Hematology History: Reports: Hx Anemia - hx of Denies: Hx Diabetes Cardiovascular History: Reports: Hx Hypercholesterolemia, Hx Hypertension GI History: Reports: Other GI Disorders - colitis History: Reports: Other Problems/Disorders - noted abnormal gfr Denies: Hx Renal Disease Musculoskeletal History: Reports: Hx Arthritis - right knee, Other Musculoskeletal History - acl repair. Sensory History: Reports: Hx Contacts or Glasses, Hx Hearing Aid - bilat Opthamlomology History: Reports: Hx Contacts or Glasses - Cancer History Hx Chemotherapy: No Hx Radiation Therapy: No - Surgical History Surgery Procedure, Year, and Place: kidney surgery for bladder pain 1980 to release pressure on a blood vessel per pt. no residual effects. knee right acl repair; right shoulder arthroscopic Hx Anesthesia Reactions: No Infectious Disease History: Reports: Traveled Outside the [place] in Last 30 Days - [facility] Denies: History Other Infectious Disease - Family History Known Family History: Positive: None, Other - neg: breast CA - Social History Occupation: Retired Lives: With Family Alcohol Use: None Hx Substance Use: No Substance Use Type: Reports: None Hx Tobacco Use: No Smoking Status (MU): Never Smoked Tobacco Have You Smoked in the Last Year: No Review of Systems Negative: Fever, Chills Negative: Erythema Negative: Sore Throat Negative: Chest Pain Negative: Shortness Of Breath, Cough Positive: Nausea. Negative: Abdominal Pain, Vomiting Negative: dysuria, hematuria Positive: Other - pos: pain at ribcage. Negative: Myalgia, Edema Negative: Rash Neurological: Other - pos: fatigue; neg: dizziness All Other Systems Reviewed And Are Negative: Yes Physical Exam - Summary Physical Exam Summary: Constitutional: Well-developed, Well-nourished, Alert. (-) Distressed Skin: Warm, Dry HENT: Normocephalic; Atraumatic Eyes: Conjunctiva normal Neck: Musculoskeletal ROM normal neck. (-) JVD, (-) Stridor, (-) Tracheal deviation Cardio: Rhythm regular, tachy, Heart sounds normal; Intact distal pulses; The pedal pulses are 2+ and symmetric. Radial pulses are 2+ and symmetric. (-) Murmur Pulmonary/Chest wall: Effort normal. (-) Respiratory distress, (-) Wheezes, (-) Rales Abd: Soft, RUQ Tenderness, (-) Distension, (-) Guarding, (-) Rebound Musculoskeletal: (-) Edema Lymph: (-) Cervical adenopathy Neuro: Alert, Oriented x3 Psych: Mood and affect Normal Triage Information Reviewed: Yes Vital Signs On Initial Exam: Initial Vitals Temp Pulse Resp BP Pulse Ox 98.2 F 116 20 139/73 100 01/06/17 16:35 01/06/17 16:35 01/06/17 16:35 01/06/17 16:35 01/06/17 16:35 Vital Signs Reviewed: Yes Diagnostics - Vital Signs Vital Signs Temp Pulse Resp BP Pulse Ox 01/06/17 16:35 98.2 F 116 20 139/73 100 - Laboratory Lab Results: Lab Results 01/06/17 01/06/17 01/06/17 Range/Units 18:00 18:00 18:00 WBC 8.4 (3.5-10.8) 10^3/ul RBC 4.17 (4.0-5.4) 10^6/ul Hgb 10.5 L (12.0-16.0) g/dl Hct 33 L (35-47) % MCV 80 (80-97) fL MCH 25 L (27-31) pg MCHC 31 (31-36) g/dl RDW 16 H (10.5-15) % Plt Count 488 H (150-450) 10^3/ul MPV 7 L (7.4-10.4) um3 Neut % (Auto) 80.9 (38-83) % Lymph % (Auto) 9.4 L (25-47) % [place] % (Auto) 7.3 (1-9) % Eos % (Auto) 1.8 (0-6) % Baso % (Auto) 0.6 (0-2) % Absolute Neuts (auto) 6.8 (1.5-7.7) 10^3/ul Absolute Lymphs (auto) 0.8 L (1.0-4.8) 10^3/ul Absolute Monos (auto) 0.6 (0-0.8) 10^3/ul Absolute Eos (auto) 0.2 (0-0.6) 10^3/ul Absolute Basos (auto) 0 (0-0.2) 10^3/ul Absolute Nucleated RBC 0 10^3/ul Nucleated RBC % 0 Sodium 136 (133-145) mmol/L Potassium 4.5 (3.5-5.0) mmol/L Chloride 102 (101-111) mmol/L Carbon Dioxide 27 (22-32) mmol/L Anion Gap 7 (2-11) mmol/L BUN 10 (6-24) mg/dL Creatinine 0.84 (0.51-0.95) mg/dL Est GFR ( Amer) 83.1 (>60) Est GFR (Non-Af Amer) 64.6 (>60) BUN/Creatinine Ratio 11.9 (8-20) Glucose 102 H (70-100) mg/dL Lactic Acid 1.1 (0.5-2.0) mmol/L Calcium 9.3 (8.6-10.3) mg/dL Total Bilirubin 0.60 (0.2-1.0) mg/dL AST 25 (13-39) U/L ALT 37 (7-52) U/L Alkaline Phosphatase 173 H (34-104) U/L Troponin I 0.00 (<0.04) ng/mL Total Protein 6.9 (6.4-8.9) g/dL Albumin 3.8 (3.2-5.2) g/dL Globulin 3.1 (2-4) g/dL Albumin/Globulin Ratio 1.2 (1-3) Result Diagrams: 01/06/17 18:00 01/06/17 18:00 Lab Statement: Any lab studies that have been ordered have been reviewed, and results considered in the medical decision making process. - Radiology CXR Xray Interpretation: Positive (See Comments) - IMPRESSION: 1. Stigmata of potential chronic obstructive pulmonary disease. 2. Large retrocardiac hiatal hernia without gross change compared with the prior CT. 3. No acute cardiopulmonary process evident. Radiology Interpretation Completed By: Radiologist - CT Chest/thorax CTA CT Interpretation: Positive (See Comments) - IMPRESSION: 1. Negative for pulmonary embolism. 2. Negative for pneumonia. Resolved pleural effusions compared with the prior exam. 3. Unchanged large hiatal hernia/intrathoracic stomach with resulting LEFT greater than RIGHT lower lobe atelectasis. 4. Coronary artery calcifications. 5. Cholelithiasis. CT Interpretation Completed By: Radiologist - Ultrasound No standard instances Ultrasound Interpretation: Positive (See Comments) - IMPRESSION: Cholelithiasis and biliary sludge without compelling secondary findings to favor acute cholecystitis. Ultrasound Interpretation Completed By: Radiologist - EKG 1903 Cardiac Rate: Tachycardia - 105 bpm EKG Rhythm: Sinus Tachycardia ST Segment: Normal - no STEMI Complex Multi-Symp Course/Dx Course Of Treatment: Pt is an 86 y/o F presenting with c/o rib pain onset approx one week ago. Pt fell onto a hard tile floor almost two weeks ago. Pt has had a L ecchymosis under her eye since, denies LOC at the time. The rib pain occurred several days after the fall. Pain has prevented her from sleeping well over the past few days. Associated sx: fatigue, nausea. Denies fever, chills, diaphoresis, SOB, vomiting/diarrhea, melena. Pt traveled from [place] to [place] by car in past two weeks. Aggravating actors: laughing. KNA. Pt given aspirin in ED. Bloodwork is without significant abnormalities. EKG is sinus tachy at 105 bpm, with no STEMI. CXR shows "1. Stigmata of potential chronic obstructive pulmonary disease. 2. Large retrocardiac hiatal hernia without gross change compared with the prior CT. 3. No acute cardiopulmonary process evident." Gallbladder U/S shows "Cholelithiasis and biliary sludge without compelling secondary findings to favor acute cholecystitis." Chest/ thoracic CTA shows "Negative for pulmonary embolism. 2. Negative for pneumonia. Resolved pleural effusions compared with the prior exam. 3. Unchanged large hiatal hernia/intrathoracic stomach with resulting LEFT greater than RIGHT lower lobe atelectasis. 4. Coronary artery calcifications. 5. Cholelithiasis.". Consulted with hospitalist, will admit. - Diagnoses Differential Diagnoses/HQI/PQRI: Other - PE vs PNA vs cardiac Provider Diagnoses: Chest pain, unspecified - Physician Notifications Discussed Care Of Patient With: Briana Cheng - hospitalist Time Discussed With Above Provider: 19:54 Discharge - Discharge Plan Condition: Good Disposition: ADMITTED TO [facility] documentation as recorded by the Morgan coffman SooYoung accurately reflects the service I personally performed and the decisions made by , Randall Morales MD.
== END 2017-01-07 13:14 | disposition home or self-care (01) ==
LOC: ED 16:32 → MEDTELE 20:29
PROVIDERS: ADMIT Pediatrics; ATTEND Hospitalist
DX: R10.30 Lower abdominal pain, unspecified (principal); I10 Essential (primary) hypertension; R07.9 Chest pain, unspecified; R00.0 Tachycardia, unspecified; R53.83 Other fatigue; R11.0 Nausea; J98.11 Atelectasis; K80.20 Calculus of gallbladder without cholecystitis without obstruction; K44.9 Diaphragmatic hernia without obstruction or gangrene; I73.9 Peripheral vascular disease, unspecified; E78.5 Hyperlipidemia, unspecified; M19.90 Unspecified osteoarthritis, unspecified site; I25.10 Atherosclerotic heart disease of native coronary artery without angina pectoris
CPT/HCPCS: 36415; 71010; 71275; 72070; 76705; 80053; 81003; 81015; 83605; 84484; 85025; 86787; 87086; 93005; 99284; A9270-GY; G0378; J1644; J2405; Q9967

== ENCOUNTER 2017-11-06 11:01 | Day surgery (SDC) | payer MEDICARE, OTHER ==
[~2017-11-06 11:01] MED LIST changes: -Buffered Lidocaine 1% SYRIN* 3 ML/SYR SYRINGE INTRADERM ONE; +Cyclopentolate 1% OPTH.SOL* 2 ML BTL ONE; -Famotidine IV* 10 MG/ML 2 ML (20 mg) IV ONE; +Ketorolac 0.5% OPHTH (NF) 0.5 % 5 ML BTL ONE; +Lidocaine 1%* 5 ML VIAL ONE; +Lidocaine 2% EPI 1:200000 MPF*10-20 ML VIAL ONE; -Metoclopramide TAB* 10 MG PO ONE; +Neomycin/Polymy/Dex OPTH.SUSP* MAXITROL 0.1% 5 ML ONE; +Phenylephrine 2.5% OPTH.SOL* 2 ML BTL ONE; +Povidone Iodine 5% OPTH* 30 ML BTL ONE; +acetaZOLAMIDE TAB* 250 MG ONE
[2017-11-06] MEDS ORDERED: Midazolam* 1 MG/ML 2 ML VIAL (2 MG) ONE (13:28)
[2017-11-06 14:17] VITALS: BP 131/50
--- NOTE | 2017-11-06 15:13 | OP ---
DATE OF OPERATION: 11/06/2017 [facility] DATE OF : 1930. SURGEON: Clarence Yoder M.D. PREOPERATIVE DIAGNOSIS: Cataract right eye. POSTOPERATIVE DIAGNOSIS: Cataract right eye. OPERATIVE PROCEDURE: Extracapsular cataract extraction with intraocular lens implant right eye. DESCRIPTION OF PROCEDURE: The patient was brought to the operating room after being given 1/2% Alcaine with epinephrine drops in the preoperative area. The eye was prepped and draped in the usual sterile fashion. Sterile drape and eyelid speculum were placed. Again, topical 1/2% Alcaine with epinephrine was given. A paracentesis incision was made at the 9 o'clock position with the No.75 blade. Clear cornea incision 2.2 x 2.2-mm was created at the 12 o'clock position starting at the anterior limbus using the 2.2-mm keratome. The anterior chamber was irrigated with 0.4 mL of 1% non-preservative intracameral lidocaine and filled with DisCoVisc. A capsulorrhexis was completed using the cystotome and the Utrata forceps. Hydrodissection was performed with balanced salt solution. The lens nucleus was removed with the Phacoemulsification handpiece without incident. Cortex was removed with the irrigation-aspiration handpiece. The capsular bag was re-inflated using DisCoVisc and an SN6AT4 19.5 implant was inserted with the shooter, oriented to the 172 degree meridian. Horizontal reference judge were made with the patient in the seated position in the preoperative area. The irrigation-aspiration handpiece was used to remove all residual DisCoVisc. The eye was refilled with balanced salt solution and the wound checked and found to be watertight. Topical Maxitrol drops were given. [id number]/[facility] #: [id number] MTDD
== END 2017-11-06 14:15 | disposition home or self-care (01) ==
LOC: OREAST 11:01
PROVIDERS: ATTEND Specialist
DX: H25.811 Combined forms of age-related cataract, right eye (principal); H43.813 Vitreous degeneration, bilateral; I10 Essential (primary) hypertension; E78.00 Pure hypercholesterolemia, unspecified
CPT/HCPCS: A9270-GY; J2250; V2787

== ENCOUNTER 2017-11-13 07:44 | Day surgery (SDC) | payer MEDICARE, OTHER ==
[~2017-11-13 07:44] MED LIST changes: +Acetaminophen TAB* 325 MG PO PRN; +Buffered Lidocaine 0.9% SYRIN* 5 ML/SYR SYRINGE INTRADERM ONE; -Cyclopentolate 1% OPTH.SOL* 2 ML BTL ONE; -Ketorolac 0.5% OPHTH (NF) 0.5 % 5 ML BTL ONE; -Lidocaine 1%* 5 ML VIAL ONE; -Lidocaine 2% EPI 1:200000 MPF*10-20 ML VIAL ONE; -Neomycin/Polymy/Dex OPTH.SUSP* MAXITROL 0.1% 5 ML ONE; -Phenylephrine 2.5% OPTH.SOL* 2 ML BTL ONE; -Povidone Iodine 5% OPTH* 30 ML BTL ONE; -acetaZOLAMIDE TAB* 250 MG ONE
[2017-11-13] MEDS ORDERED: Midazolam* 1 MG/ML 2 ML VIAL (2 MG) ONE (09:45)
[2017-11-13] MEDS ORDERED: acetaZOLAMIDE TAB* 250 MG ONE (09:51)
[2017-11-13] MEDS ORDERED: Ketorolac 0.5% OPHTH (NF) 0.5 % 5 ML BTL ONE (09:51)
[2017-11-13] MEDS ORDERED: Povidone Iodine 5% OPTH* 30 ML BTL ONE (09:51)
[2017-11-13] MEDS ORDERED: Lidocaine 1%* 5 ML VIAL ONE (09:51)
[2017-11-13] MEDS ORDERED: Proparacaine 0.5% OPHTH.SOL* 15 ML BTL ONE (09:51)
[2017-11-13] MEDS ORDERED: Cyclopentolate 1% OPTH.SOL* 2 ML BTL ONE (09:51)
[2017-11-13] MEDS ORDERED: Lidocaine 2% EPI 1:200000 MPF*10-20 ML VIAL ONE (09:51)
[2017-11-13] MEDS ORDERED: Phenylephrine 2.5% OPTH.SOL* 2 ML BTL ONE (09:51)
[2017-11-13] MEDS ORDERED: Neomycin/Polymy/Dex OPTH.SUSP* MAXITROL 0.1% 5 ML ONE (09:51)
[2017-11-13 10:18] VITALS: BP 118/70
--- NOTE | 2017-11-13 13:15 | OP ---
OPERATIVE NOTE: DATE OF OPERATION: 11/13/17 DATE OF : [birth year] SURGEON: Clarence Yoder M.D. PREOPERATIVE DIAGNOSIS: Cataract left eye. POSTOPERATIVE DIAGNOSIS: Cataract left eye. OPERATIVE PROCEDURE: Extracapsular cataract extraction with intraocular lens implant left eye. PROCEDURE: The patient was brought to the operating room after being given 1/2% Alcaine with epineph rine drops in the preoperative area. The eye was prepped and draped in the usual sterile fashion. S terile drape and eyelid speculum were placed. Again, topical 1/2% Alcaine with epinephrine was given . A paracentesis incision was made at the 3 o'clock position with the No.75 blade. Clear cornea inc ision 2.2 x 2.2-mm was created at the 6 o'clock position starting at the anterior limbus using the 2. 2-mm keratome. The anterior chamber was irrigated with 0.4 mL of 1% non-preservative intracameral li docaine and filled with DisCoVisc. A capsulorrhexis was completed using the cystotome and the Utrata forceps. Hydrodissection was performed with balanced salt solution. The lens nucleus was removed wi th the Phacoemulsification handpiece without incident. Cortex was removed with the irrigation-aspira tion handpiece. The capsular bag was re-inflated using DisCoVisc and an SN6AT4 19.5 implant was inse rted with the shooter oriented to the 174 degree [place]. Horizontal reference judge made with the patient in a seated position in the preoperative area. The irrigation-aspiration handpiece was used to remove all residual DisCoVisc. The eye was refilled with balanced salt solution and the wound abena cked and found to be watertight. Topical Maxitrol drops were given. [id number]/[facility] #: [id number]
== END 2017-11-13 10:28 | disposition home or self-care (01) ==
LOC: OREAST 07:44
PROVIDERS: ATTEND Specialist
DX: H25.812 Combined forms of age-related cataract, left eye (principal); H43.813 Vitreous degeneration, bilateral; I10 Essential (primary) hypertension; D50.9 Iron deficiency anemia, unspecified; I73.9 Peripheral vascular disease, unspecified; M81.0 Age-related osteoporosis without current pathological fracture; K51.90 Ulcerative colitis, unspecified, without complications; E78.00 Pure hypercholesterolemia, unspecified
CPT/HCPCS: A9270-GY; J2250; V2787

== ENCOUNTER 2021-05-09 09:40 | Inpatient (IN) ==
[2021-05-09] MEDS ORDERED: Piperacillin/Tazobac ADVAN 3.375 GM in NS 0.9% 100 ml BAG 100 ML IV ONE (11:08)
[2021-05-09] MEDS ORDERED: Lactated Ringers 1000 ml BAG 1,000 ML IV ONE (12:00)
[2021-05-09] MEDS ORDERED: HYDROmorphone 0.5 MG/0.5 ML SYRINGE IV SLOW PU PRN (12:49)
[2021-05-09] MEDS ORDERED: Ondansetron 4 mg VIAL 2 MG/ML 2 ml VIAL IV PRN ×2 (12:49→14:56)
[2021-05-09] MEDS ORDERED: Buffered Lidocaine 1% SYRIN 1 ml INTRADERM ONE (13:17)
[2021-05-09] MEDS ORDERED: Famotidine IV 10 MG/ML 2 ml VIAL (20 mg) IV ONE (13:17)
[2021-05-09 13:32] LABS: ABS Basophils 0.1 10^3/ul (0-0.2); ABS Eosinophils 0.1 10^3/ul (0-0.6); ABS Lymphocytes 0.9 10^3/ul (1.0-4.8); ABS Monocytes 0.8 10^3/ul (0-0.8); Eosinophil % 0.8 %; Hematocrit 35 % (35-47); Hemoglobin 11.8 g/dL (12.0-16.0); Lymphocyte % 7.9 %; Mean Corpuscular HGB Conc 33 g/dL (31-36); Mean Corpuscular Hemoglobin 28 pg (27-31); Mean Corpuscular Volume 84 fL (80-97); Mean Platelet Volume 8.3 fL (7.4-10.4); Platelet Count 298 10^3/uL (150-450); Red Cell Distribution Width 16 % (10-15); White Blood Count 11.9 10^3/uL (3.5-10.8)
[2021-05-09 13:42] LABS: Rapid COVID-19 Molecular Undetected (Undetected)
[2021-05-09 13:47] LABS: Albumin 3.7 g/dL (3.2-5.2); Albumin/Globulin Ratio 1.2 (1-3); Calcium 9.3 mg/dL (8.6-10.3); Globulin 3.1 g/dL (2-4); Potassium 4.1 mmol/L (3.5-5.0); Total Protein 6.8 g/dL (6.4-8.9); eGFR CKD-EPI 59.1 (>60)
[2021-05-09] MEDS ORDERED: Lactated Ringers 1000 ml BAG 1,000 ML IV SCH (14:00)
[2021-05-09] MEDS ORDERED: Propofol 10 MG/ML 20 ML BTL ONE (14:09)
[2021-05-09] MEDS ORDERED: fentaNYL 100 mcg/2 ml 50 MCG/ML VIAL ONE ×2 (14:09→16:10)
[2021-05-09] MEDS ORDERED: Dexamethasone IV 4 MG/ML VIAL 1 ml VIAL ONE (14:09)
[2021-05-09] MEDS ORDERED: Rocuronium 50 mg VIAL 10 mg/ml 5 ml VIAL (50 mg) ONE (14:09)
[2021-05-09] MEDS ORDERED: Lidocaine 2% PF 5 ML VIAL ONE (14:09)
[2021-05-09] MEDS ORDERED: Ondansetron 4 mg VIAL 2 MG/ML 2 ml VIAL ONE (14:09)
[2021-05-09] MEDS ORDERED: Bupivacaine 0.25% SDV PF 10 ML VIAL INJ ONE (14:24)
[2021-05-09] MEDS ORDERED: Lidocaine 1% w EPI 1:100,000 MDV 20 ML VIAL ONE (14:24)
[2021-05-09] MEDS ORDERED: fentaNYL 100 mcg/2 ml 50 MCG/ML VIAL IV PRN (14:56)
[2021-05-09] MEDS ORDERED: Naloxone 0.4 mg VIAL 0.4 mg/ml 1 ml VIAL IV PRN (14:56)
[2021-05-09] MEDS ORDERED: Famotidine IV 10 MG/ML 2 ml VIAL (20 mg) ONE (15:01)
[2021-05-09] MEDS ORDERED: Acetaminophen IV 1 GM/100ML 100 ML IV ONE (15:11)
[2021-05-09] MEDS ORDERED: NS 0.9% 1000 ml BAG 1,000 ML IV SCH (17:15)
[2021-05-09] MEDS: Piperacillin/Tazobactam VIAL 3.375 GM in NS 0.9% 100 ml BAG 100 ML IVPB SCH (18:35)
[2021-05-10] MEDS: Piperacillin/Tazobactam VIAL 3.375 GM in NS 0.9% 100 ml BAG 100 ML IVPB SCH ×2 (01:44→09:40)
[2021-05-10 05:45] LABS: ABS Basophils 0.1 10^3/ul (0-0.2); ABS Lymphocytes 0.4 10^3/ul (1.0-4.8); ABS Monocytes 0.7 10^3/ul (0-0.8); ABS Neutrophils 11.3 10^3/ul (1.5-7.7); Hematocrit 31 % (35-47); Hemoglobin 10.3 g/dL (12.0-16.0); Lymphocyte % 2.9 %; Mean Corpuscular HGB Conc 34 g/dL (31-36); Mean Corpuscular Hemoglobin 28 pg (27-31); Mean Corpuscular Volume 84 fL (80-97); Mean Platelet Volume 8.2 fL (7.4-10.4); Platelet Count 284 10^3/uL (150-450); Red Blood Count 3.66 10^6 /uL (3.70-4.87); Red Cell Distribution Width 16 % (10-15); White Blood Count 12.4 10^3/uL (3.5-10.8)
[2021-05-10 06:04] LABS: Albumin 2.9 g/dL (3.2-5.2); Albumin/Globulin Ratio 1.1 (1-3); Globulin 2.6 g/dL (2-4); Potassium 4.2 mmol/L (3.5-5.0); Total Bilirubin 0.8 mg/dL (0.2-1.0); Total Protein 5.5 g/dL (6.4-8.9); eGFR CKD-EPI 66.8 (>60)
[2021-05-10 12:17] VITALS: BP 142/64
== END 2021-05-10 14:10 | disposition home or self-care (01) | DRG 419 ==
LOC: ED 09:40 → MED 14:33
PROVIDERS: ADMIT Surgery; ATTEND Surgery